=== PATIENT | female | born 1955 | race Hispanic/Latino ===

== ENCOUNTER 2020-09-04 10:05 | Inpatient (IN) | payer OTHER, MEDICARE ==
[~2020-09-04] VITALS: Ht 149.9 cm; Wt 72.1 kg
[2020-09-04 10:50] LABS: BASOPHILS % (AUTO) 0.2 % (0.0-5.0); EOSINOPHILS % (AUTO) 0.4 % (0.0-8.0); HEMATOCRIT 30.3 % (36-48); LYMPHOCYTES % (AUTO) 6.8 % (21.0-51.0); MEAN CORPUSCULAR HEMOGLOBIN 27.2 pg (27.0-33.0); MEAN CORPUSCULAR HGB CONC 30.4 g/dL (32.0-36.0); MEAN CORPUSCULAR VOLUME 89.6 fL (79-99); NEUTROPHILS % (AUTO) 88.8 % (40.0-77.0); PLATELET COUNT (AUTO) 108 K/uL (130-400); RED BLOOD CELL COUNT(AUTO) 3.38 MIL/uL (4.00-5.50); WHITE BLOOD COUNT (AUTO) 19.9 K/uL (4.8-10.8)
[2020-09-04 11:03] LABS: ALBUMIN 1.4 g/dL (3.5-5.0); BILIRUBIN,TOTAL 0.3 mg/dL (0.2-1.0); CREATININE 0.9 mg/dL (0.5-1.5); TOTAL PROTEIN, SERUM 6.4 g/dL (6.0-8.3)
[2020-09-04 11:05] LABS: POTASSIUM 2.5 mmol/L (3.5-5.1)
[2020-09-04] MEDS ORDERED: POTASSIUM BICARB/CIT AC 25 MEQ TABLET.EFF ONE (13:42)
[2020-09-04 15:03] LABS: APPEARANCE,URINE Cloudy (CLEAR); BILIRUBIN,URINE Negative (NEGATIVE); COLOR,URINE Yellow (YELLOW); GLUCOSE, URINE (UA) Negative (NEGATIVE); KETONES,URINE Negative (NEGATIVE); LEUKOCYTE ESTERASE ,URINE Trace (NEGATIVE); NITRATE,URINE Negative (NEGATIVE); OCCULT BLOOD,URINE Trace (NEGATIVE); PH,URINE 5.5 (5.0-8.0); PROTEIN,URINE POS 1+ mg/dL (NEGATIVE); UROBILINOGEN,URINE 0.2 mg/dL (0.2-1.0)
[2020-09-04 15:11] LABS: AMPHET/METH SCREEN,URINE NEGATIVE (NEGATIVE); BARBITURATE SCREEN, URINE NEGATIVE (NEGATIVE); BENZODIAZEPINES SCREEN,URINE NEGATIVE (NEGATIVE); CANNABINOID SCREEN,URINE NEGATIVE (NEGATIVE); COCAINE SCREEN,URINE NEGATIVE (NEGATIVE); OPIATE SCREEN,URINE NEGATIVE (NEGATIVE); PHENCYCLIDINE SCREEN,URINE NEGATIVE (NEGATIVE)
[2020-09-04 15:17] LABS: BACTERIA,URINE Few /HPF (None Seen); COARSE GRANULAR CASTS,URINE 0-2 /LPF (None Seen); MUCUS,URINE Rare LPF (None Seen); SQUAMOUS EPITHELIAL CELL,UR Rare /HPF (0-2); YEAST,URINE BUDDING Moderate /HPF (None Seen)
[2020-09-04] MEDS ORDERED: LABETALOL 20MG SYG IV PRN (17:00)
[2020-09-04] MEDS ORDERED: ACETAMINOPHEN 650 MG SUPPOSITORY RC PRN (17:00)
[2020-09-04] MEDS ORDERED: ONDANSETRON 4MG INJ IVP PRN (17:00)
[2020-09-04] MEDS ORDERED: VANCOMYCIN PROTOCOL PER PHARMACY IV SCH (17:00)
[2020-09-04] MEDS ORDERED: DEXTROSE 50%-WATER 50 ML DISP.SYRIN IV PRN (17:00)
[2020-09-04] MEDS ORDERED: POTASSIUM CHLORIDE 20MEQ/100ML 100 ML IV PRN ×2 (17:00)
[2020-09-04] MEDS ORDERED: LACTATED RINGERS 1000ML 1,000 ML IV SCH (17:00)
[2020-09-04] MEDS ORDERED: LACTULOSE 20 GM/30 ML UDCUP PO PRN (17:00)
[2020-09-04] MEDS ORDERED: GLUCAGON 1MG KIT 1 MG ML IM PRN (17:00)
[2020-09-04] MEDS ORDERED: LIDOCAINE HCL-MPF 1% 2ML VIAL IV PRN ×2 (17:00)
[2020-09-04] MEDS ORDERED: CLONIDINE HCL 0.1 MG TABLET PO PRN (17:00)
[2020-09-04] MEDS ORDERED: VANCOMYCIN KIT 1 GM/250 ML IV.KIT IV SCH (17:00)
[2020-09-04] MEDS ORDERED: TRAMADOL HCL 50 MG TABLET PO PRN (17:00)
[2020-09-04 17:45] LABS: CREATINE KINASE, TOTAL 307 U/L (21-232); MYOGLOBIN 384 ng/mL (10-92); TROPONIN I < 0.04 ng/mL (0.00-0.06)
[2020-09-04] MEDS ORDERED: ENOXAPARIN SODIUM 80 MG/0.8 ML SQ ONE (17:53)
[2020-09-04] MEDS ORDERED: CLINDAMYCIN IVPB 600MG/50ML 50 ML IV ONE (17:54)
[2020-09-04] MEDS: LEVOFLOXACIN 500 MG/D5W 100 ML IV SCH (18:00)
[2020-09-04] MEDS ORDERED: VANCOMYCIN 1G/250ML KIT 250 ML IV SCH (18:15)
[2020-09-04 18:26] LABS: CRP QUANTITATIVE 221.7 mg/L (0.00-9.0)
[2020-09-04] MEDS ORDERED: VANCOMYCIN 1G 1.5 GM in 0.9% NACL 250ML 250 ML IV ONE (19:30)
[2020-09-04] MEDS: ENOXAPARIN SODIUM 80 MG/0.8 ML SQ SCH (21:00)
[2020-09-04] MEDS: INSULIN HUMULIN R 100 UNIT/ML 3ML SQ SCH (21:00)
[2020-09-04] MEDS ORDERED: LEVOFLOXACIN 500 MG/D5W 100 ML 100 ML ONE (21:40)
[2020-09-04] MEDS ORDERED: LACTATED RINGERS 1000ML 1,000 ML IV ONE (21:43)
[2020-09-04 23:24] LABS: CREATINE KINASE, TOTAL 262 U/L (21-232); MYOGLOBIN 366 ng/mL (10-92); TROPONIN I < 0.04 ng/mL (0.00-0.06)
[2020-09-05] MEDS: INSULIN HUMULIN R 100 UNIT/ML 3ML SQ SCH ×3 (01:22→21:00)
[2020-09-05 07:08] LABS: BASOPHILS % (AUTO) 0.1 % (0.0-5.0); EOSINOPHILS % (AUTO) 0.2 % (0.0-8.0); HEMATOCRIT 26.7 % (36-48); LYMPHOCYTES % (AUTO) 5.5 % (21.0-51.0); MEAN CORPUSCULAR HEMOGLOBIN 27.9 pg (27.0-33.0); MEAN CORPUSCULAR HGB CONC 31.1 g/dL (32.0-36.0); MEAN CORPUSCULAR VOLUME 89.6 fL (79-99); MONOCYTES % (AUTO) 3.1 % (3.0-13.0); NEUTROPHILS % (AUTO) 90.4 % (40.0-77.0); PLATELET COUNT (AUTO) 207 K/uL (130-400); RED BLOOD CELL COUNT(AUTO) 2.98 MIL/uL (4.00-5.50); RED CELL DISTRIBUTION WIDTH 14.8 % (11.0-15.5); WHITE BLOOD COUNT (AUTO) 17.2 K/uL (4.8-10.8)
[2020-09-05 07:42] LABS: CARBON DIOXIDE 27 mmol/L (21-32); CREATINE KINASE, TOTAL 213 U/L (21-232); CREATININE 0.7 mg/dL (0.5-1.5); GLOMERULAR FILTR. RATE CALC 89 mL/min (>60); GLUCOSE,RANDOM 110 mg/dL (70-105); MYOGLOBIN 293 ng/mL (10-92); PHOSPHORUS 2.7 mg/dL (2.5-4.9); TROPONIN I < 0.04 ng/mL (0.00-0.06); UREA NITROGEN, BLOOD 13 mg/dL (7-18)
[2020-09-05 08:04] LABS: CHLORIDE 124 mmol/L (101-111); POTASSIUM 2.9 mmol/L (3.5-5.1); SODIUM SERUM 160 mmol/L (136-145)
[2020-09-05] MEDS ORDERED: ENOXAPARIN SODIUM 80 MG/0.8 ML SQ ONE ×2 (08:46→22:02)
[2020-09-05] MEDS ORDERED: LACTATED RINGERS 1000ML 1,000 ML IV ONE (08:47)
[2020-09-05] MEDS ORDERED: ASPIRIN 81MG CHEW TAB ONE (08:47)
[2020-09-05] MEDS ORDERED: PANTOPRAZOLE 40 MG TAB DR ONE (08:47)
[2020-09-05] MEDS: ENOXAPARIN SODIUM 80 MG/0.8 ML SQ SCH ×2 (09:00→21:00)
[2020-09-05] MEDS: ASPIRIN 81MG CHEW TAB PO SCH (09:00)
[2020-09-05] MEDS: PANTOPRAZOLE 40 MG TAB DR PO SCH (09:00)
[2020-09-05] MEDS ORDERED: DEXTROSE 5%-WATER 1,000 ML IV ONE ×2 (09:33→19:58)
[2020-09-05] MEDS: DEXTROSE 5%-WATER 1,000 ML IV SCH ×2 (10:36→18:36)
[2020-09-05] MEDS ORDERED: KCL 20 MEQ ERTAB PO ONE ×5 (10:46→23:28)
[2020-09-05] MEDS ORDERED: POTASSIUM CHLORIDE 20MEQ/100ML 100 ML IV ONE (10:47)
[2020-09-05] MEDS ORDERED: LEVOFLOXACIN 500 MG/D5W 100 ML 100 ML ONE (17:33)
[2020-09-05] MEDS ORDERED: INSULIN HUMULIN R 100 UNIT/ML 3ML ONE ×2 (17:44→22:03)
[2020-09-05] MEDS: LEVOFLOXACIN 500 MG/D5W 100 ML IV SCH (18:00)
[2020-09-05 21:54] LABS: CHLORIDE,URINE RANDOM 69 mmol/L (110-250); POTASSIUM,URINE RANDOM 55 mmol/L (25-125); SODIUM,URINE RANDOM 16 mmol/l (40-220)
[2020-09-05 22:20] LABS: CREATININE 0.8 mg/dL (0.5-1.5); POTASSIUM 3.2 mmol/L (3.5-5.1)
[2020-09-05] MEDS ORDERED: IOHEXOL-350 75 ML VIAL IV ONE (23:34)
[2020-09-06] VITALS (7 sets, daily range): BP systolic 93–113; BP diastolic 41–75
[2020-09-06 00:29] LABS: CREATINE KINASE, TOTAL 114 U/L (21-232); MYOGLOBIN 244 ng/mL (10-92); TROPONIN I < 0.04 ng/mL (0.00-0.06)
[2020-09-06] MEDS: VANCOMYCIN 750MG + NS 250 ML IV SCH ×4 (01:22→18:00)
[2020-09-06] MEDS: MORPHINE 2 MG SYG IVP PRN ×2 (01:29→09:25)
[2020-09-06] MEDS: KCL 20 MEQ ERTAB PO PRN ×2 (01:29→20:50)
[2020-09-06] MEDS: DEXTROSE 5%-WATER 1,000 ML IV SCH ×3 (02:36→20:56)
[2020-09-06 05:41] LABS: RETICULOCYTE % (AUTO) 0.46 % (0.42-2.23)
[2020-09-06] MEDS: INSULIN HUMULIN R 100 UNIT/ML 3ML SQ SCH ×4 (05:54→20:56)
[2020-09-06] MEDS: PANTOPRAZOLE 40 MG TAB DR PO SCH (09:17)
[2020-09-06] MEDS: ASPIRIN 81MG CHEW TAB PO SCH (09:17)
[2020-09-06] MEDS: ENOXAPARIN SODIUM 80 MG/0.8 ML SQ SCH ×2 (09:17→20:50)
[2020-09-06] MEDS: IRON SUCROSE COMPLEX 100 MG in 0.9%NACL 50ML 50 ML IV SCH (12:26)
[2020-09-06] MEDS: BALSAM PERU/CASTOR OIL 60 GM TUBE TP SCH (12:27)
[2020-09-06] MEDS ORDERED: COMPOUND IV REFRIGERATED 1 EACH IVSOLN MISC PRN (12:30)
[2020-09-06] MEDS ORDERED: COMPOUND IV MISC 1 EACH IVSOLN MISC PRN (13:30)
[2020-09-06] MEDS: LEVOFLOXACIN 500 MG/D5W 100 ML IV SCH (18:26)
[2020-09-06] MEDS: VANCOMYCIN 500MG+NS 100ML 100 ML IV SCH (20:49)
[2020-09-07] MEDS: DEXTROSE 5%-WATER 1,000 ML IV SCH ×2 (02:36→10:36)
[2020-09-07 04:10] VITALS: BP 105/46
[2020-09-07] MEDS: VANCOMYCIN 500MG+NS 100ML 100 ML IV SCH ×2 (04:53→19:32)
[2020-09-07] MEDS: INSULIN HUMULIN R 100 UNIT/ML 3ML SQ SCH ×4 (05:54→20:02)
[2020-09-07 06:13] LABS: CREATININE 0.8 mg/dL (0.5-1.5); POTASSIUM 3.6 mmol/L (3.5-5.1)
[2020-09-07 06:22] LABS: HEMATOCRIT 22.5 % (36-48); MEAN CORPUSCULAR HEMOGLOBIN 27.4 pg (27.0-33.0); MEAN CORPUSCULAR HGB CONC 31.6 g/dL (32.0-36.0); MEAN CORPUSCULAR VOLUME 86.9 fL (79-99); PLATELET COUNT (AUTO) 228 K/uL (130-400); RED BLOOD CELL COUNT(AUTO) 2.59 MIL/uL (4.00-5.50); RED CELL DISTRIBUTION WIDTH 14.4 % (11.0-15.5); WHITE BLOOD COUNT (AUTO) 8.8 K/uL (4.8-10.8)
[2020-09-07 07:33] LABS: LYMPHOCYTES % (MANUAL) 1 % (22-44); MONOCYTES % (MANUAL) 1 % (2-9); SEGMENTED NEUTROPHILS % 98 % (40-70)
[2020-09-07 07:34] LABS: MAN.DIFF COMMENT-IMPRESSION MANUAL DIFFERENTIAL
[2020-09-07 07:35] LABS: PLATELET MORPHOLOGY COMMENT ADEQUATE
[2020-09-07 08:00] VITALS: BP 121/55
[2020-09-07] MEDS: PANTOPRAZOLE 40 MG TAB DR PO SCH (10:02)
[2020-09-07] MEDS: ASPIRIN 81MG CHEW TAB PO SCH (10:02)
[2020-09-07] MEDS: ENOXAPARIN SODIUM 80 MG/0.8 ML SQ SCH ×2 (10:03→19:54)
[2020-09-07] MEDS: IRON SUCROSE COMPLEX 100 MG in 0.9%NACL 50ML 50 ML IV SCH (10:03)
[2020-09-07] MEDS: BALSAM PERU/CASTOR OIL 60 GM TUBE TP SCH (10:04)
[2020-09-07 11:40] VITALS: BP 117/62
[2020-09-07 16:00] VITALS: BP 119/54
[2020-09-07] MEDS: GUAIFENESIN-DM 200/20 MG 10 ML PO PRN ×2 (16:16→19:53)
[2020-09-07] MEDS: LEVOFLOXACIN 500 MG/D5W 100 ML IV SCH (18:14)
[2020-09-07 20:24] VITALS: BP 105/56
[2020-09-07 23:35] VITALS: BP 101/51
[2020-09-08] VITALS (9 sets, daily range): BP systolic 84–122; BP diastolic 41–63
[2020-09-08 05:34] LABS: MEAN CORPUSCULAR HEMOGLOBIN 27.7 pg (27.0-33.0); MEAN CORPUSCULAR VOLUME 86.6 fL (79-99); PLATELET COUNT (AUTO) 242 K/uL (130-400); RED BLOOD CELL COUNT(AUTO) 2.31 MIL/uL (4.00-5.50); RED CELL DISTRIBUTION WIDTH 14.1 % (11.0-15.5); WHITE BLOOD COUNT (AUTO) 8.4 K/uL (4.8-10.8)
[2020-09-08 06:16] LABS: % IRON SATURATION 17.4 % (22-44)
[2020-09-08 06:18] LABS: THYROID STIMULATING HORMONE 1.19 uIU/mL (0.36-3.74)
[2020-09-08] MEDS: INSULIN HUMULIN R 100 UNIT/ML 3ML SQ SCH ×4 (06:23→20:59)
[2020-09-08 06:25] LABS: BAND NEUTROPHILS % (MANUAL) 6 % (0-2); LYMPHOCYTES % (MANUAL) 5 % (22-44); MONOCYTES % (MANUAL) 2 % (2-9); SEGMENTED NEUTROPHILS % 87 % (40-70)
[2020-09-08 06:26] LABS: MAN.DIFF COMMENT-IMPRESSION MANUAL DIFFERENTIAL; PLATELET MORPHOLOGY COMMENT ADEQUATE
[2020-09-08] MEDS: POLYETHYLENE GLYCOL 3350 17 GM POWD.PACK PO SCH (08:13)
[2020-09-08] MEDS: ASPIRIN 81MG CHEW TAB PO SCH (08:14)
[2020-09-08] MEDS: ENOXAPARIN SODIUM 80 MG/0.8 ML SQ SCH (08:14)
[2020-09-08] MEDS: PANTOPRAZOLE 40 MG TAB DR PO SCH (08:14)
[2020-09-08] MEDS ORDERED: SOLU-MEDROL 125MG VIAL IVP SCH ×3 (08:15→11:30)
[2020-09-08] MEDS ORDERED: FUROSEMIDE 20 MG TABLET PO SCH (09:00)
[2020-09-08] MEDS ORDERED: PHARMACY COMMUNICATION MISC SCH (10:00)
[2020-09-08] MEDS: 0.9% NACL 500ML IV.SOLN 500 ML IV SCH ×2 (10:31→11:29)
[2020-09-08] MEDS ORDERED: VANCOMYCIN 500MG+NS 100ML 100 ML IV SCH (11:30)
[2020-09-08] MEDS: IRON SUCROSE COMPLEX 100 MG in 0.9%NACL 50ML 50 ML IV SCH (11:35)
[2020-09-08] MEDS ORDERED: MIDODRINE HCL 5 MG TABLET PO SCH ×2 (12:40→14:00)
[2020-09-08] MEDS: BALSAM PERU/CASTOR OIL 60 GM TUBE TP SCH (13:37)
[2020-09-08] MEDS: 0.9%NACL 1000ML 1,000 ML IV SCH ×2 (13:38→23:20)
[2020-09-08 15:10] LABS: HEMATOCRIT 26.1 % (36-48)
[2020-09-08 15:22] LABS: INR 1.1 (0.85-1.15); PROTHROMBIN TIME 11.9 SEC (9.6-11.6)
[2020-09-08 15:23] LABS: PARTIAL THROMBOPLASTIN TIME 42.1 SEC (26.3-35.5)
[2020-09-08] MEDS ORDERED: REMDESIVIR (EUA) 520 200 MG in 0.9% NACL 250ML 250 ML IV SCH (16:00)
[2020-09-08 16:41] LABS: ABG BASE EXCESS 0.6 mmol/L (-2.0-3.0); ABG HCO3 23.9 mmol/L (21.0-28.0); ABG OXYGEN SATURATION 91.1 % (95.0-99.0); ABG PCO2 33 mmHg (32-45)
[2020-09-08] MEDS: LEVOFLOXACIN 500 MG/D5W 100 ML IV SCH (16:57)
[2020-09-08] MEDS: VANCOMYCIN 500MG+NS 100ML 100 ML IV SCH (21:01)
[2020-09-08] MEDS: DRONABINOL 2.5 MG CAP PO SCH (21:02)
[2020-09-08] MEDS: PANTOPRAZOLE 40 MG/VIAL IVP SCH (21:02)
[2020-09-08] MEDS: SOLU-MEDROL 125MG VIAL IVP SCH (21:08)
[2020-09-08] MEDS: MIDODRINE HCL 5 MG TABLET PO SCH (21:08)
[2020-09-08] MEDS: GUAIFENESIN-DM 200/20 MG 10 ML PO PRN (21:09)
[2020-09-08 21:49] LABS: HEMATOCRIT 27.2 % (36-48)
[2020-09-09 04:21] VITALS: BP 103/47
[2020-09-09 04:27] LABS: HEMATOCRIT 26.1 % (36-48); MEAN CORPUSCULAR HEMOGLOBIN 27.8 pg (27.0-33.0); MEAN CORPUSCULAR VOLUME 84.5 fL (79-99); PLATELET COUNT (AUTO) 264 K/uL (130-400); RED BLOOD CELL COUNT(AUTO) 3.09 MIL/uL (4.00-5.50); WHITE BLOOD COUNT (AUTO) 7.5 K/uL (4.8-10.8)
[2020-09-09 04:50] LABS: CREATININE 0.8 mg/dL (0.5-1.5); PHOSPHORUS 3.6 mg/dL (2.5-4.9); POTASSIUM 3.3 mmol/L (3.5-5.1)
[2020-09-09 05:26] LABS: BAND NEUTROPHILS % (MANUAL) 8 % (0-2); LYMPHOCYTES % (MANUAL) 2 % (22-44); MAN.DIFF COMMENT-IMPRESSION MANUAL DIFFERENTIAL; SEGMENTED NEUTROPHILS % 90 % (40-70)
[2020-09-09] MEDS: SOLU-MEDROL 125MG VIAL IVP SCH ×3 (06:10→21:26)
[2020-09-09] MEDS: INSULIN HUMULIN R 100 UNIT/ML 3ML SQ SCH ×4 (06:18→21:38)
[2020-09-09] MEDS: 0.9%NACL 1000ML 1,000 ML IV SCH ×2 (06:27→21:41)
[2020-09-09 08:00] VITALS: BP 110/55
[2020-09-09] MEDS: DRONABINOL 2.5 MG CAP PO SCH ×3 (08:05→21:21)
[2020-09-09] MEDS: IRON SUCROSE COMPLEX 100 MG in 0.9%NACL 50ML 50 ML IV SCH (08:05)
[2020-09-09] MEDS: ASPIRIN 81MG CHEW TAB PO SCH ×2 (08:05→09:00)
[2020-09-09] MEDS: POLYETHYLENE GLYCOL 3350 17 GM POWD.PACK PO SCH ×3 (08:05→09:28)
[2020-09-09] MEDS ORDERED: LACTULOSE 20 GM/30 ML UDCUP PO PRN (08:15)
[2020-09-09] MEDS: VANCOMYCIN 500MG+NS 100ML 100 ML IV SCH ×2 (08:20→21:20)
[2020-09-09] MEDS: BALSAM PERU/CASTOR OIL 60 GM TUBE TP SCH (08:21)
[2020-09-09] MEDS: MIDODRINE HCL 5 MG TABLET PO SCH ×4 (08:23→21:21)
[2020-09-09] MEDS: PANTOPRAZOLE 40 MG/VIAL IVP SCH ×2 (09:28→21:21)
[2020-09-09 12:00] VITALS: BP 113/58
[2020-09-09 12:53] LABS: % IRON SATURATION 33.3 % (22-44)
[2020-09-09 13:24] LABS: ALANINE AMINOTRANSFERASE 32 U/L (12-78); ALBUMIN 0.8 g/dL (3.5-5.0); ASPARTATE AMINOTRANSFERASE 44 U/L (10-37); BILIRUBIN,DIRECT < 0.1 mg/dL (0.0-0.3); BILIRUBIN,TOTAL 0.2 mg/dL (0.2-1.0); TOTAL PROTEIN, SERUM 5.1 g/dL (6.0-8.3)
[2020-09-09] MEDS: GUAIFENESIN-DM 200/20 MG 10 ML PO PRN ×2 (14:58→21:41)
[2020-09-09] MEDS: REMDESIVIR (EUA) 520 100 MG in 0.9% NACL 250ML 250 ML IV SCH (14:58)
[2020-09-09 16:00] VITALS: BP 112/61
[2020-09-09 16:03] LABS: HEMATOCRIT 29.1 % (36-48)
[2020-09-09] MEDS: LEVOFLOXACIN 500 MG/D5W 100 ML IV SCH (17:16)
[2020-09-09] MEDS ORDERED: FLUCONAZOLE 100 MG TAB PO ONE (17:25)
[2020-09-09 20:02] VITALS: BP 101/60
[2020-09-09] MEDS: INSULIN GLARGINE 100 UNITS/ML 10 ML VIAL SQ SCH (21:38)
[2020-09-09 22:11] LABS: HEMATOCRIT 28.1 % (36-48)
[2020-09-10] VITALS (10 sets, daily range): BP systolic 106–133; BP diastolic 60–76
[2020-09-10 05:11] LABS: CREATININE 0.8 mg/dL (0.5-1.5); POTASSIUM 3.3 mmol/L (3.5-5.1)
[2020-09-10] MEDS: SOLU-MEDROL 125MG VIAL IVP SCH ×3 (05:44→23:40)
[2020-09-10] MEDS: INSULIN HUMULIN R 100 UNIT/ML 3ML SQ SCH ×4 (06:52→20:46)
[2020-09-10] MEDS: BALSAM PERU/CASTOR OIL 60 GM TUBE TP SCH (08:00)
[2020-09-10] MEDS: POLYETHYLENE GLYCOL 3350 17 GM POWD.PACK PO SCH ×2 (08:18→08:19)
[2020-09-10] MEDS: DRONABINOL 2.5 MG CAP PO SCH ×2 (08:18→20:42)
[2020-09-10] MEDS: PANTOPRAZOLE 40 MG/VIAL IVP SCH ×2 (08:18→20:45)
[2020-09-10] MEDS: FLUCONAZOLE 100 MG TAB PO SCH (08:19)
[2020-09-10] MEDS: ASPIRIN 81MG CHEW TAB PO SCH (08:19)
[2020-09-10 08:24] LABS: HEMATOCRIT 29.3 % (36-48); MEAN CORPUSCULAR HEMOGLOBIN 27.7 pg (27.0-33.0); MEAN CORPUSCULAR HGB CONC 32.8 g/dL (32.0-36.0); MEAN CORPUSCULAR VOLUME 84.7 fL (79-99); RED BLOOD CELL COUNT(AUTO) 3.46 MIL/uL (4.00-5.50); WHITE BLOOD COUNT (AUTO) 7.7 K/uL (4.8-10.8)
[2020-09-10] MEDS: MIDODRINE HCL 5 MG TABLET PO SCH ×3 (09:12→20:42)
[2020-09-10 09:39] LABS: INR 1.1 (0.85-1.15); PROTHROMBIN TIME 11.9 SEC (9.6-11.6)
[2020-09-10 09:40] LABS: PARTIAL THROMBOPLASTIN TIME 34.9 SEC (26.3-35.5)
[2020-09-10] MEDS: IRON SUCROSE COMPLEX 100 MG in 0.9%NACL 50ML 50 ML IV SCH (09:42)
[2020-09-10] MEDS: VANCOMYCIN 500MG+NS 100ML 100 ML IV SCH ×2 (09:42→20:45)
[2020-09-10] MEDS: GUAIFENESIN-DM 200/20 MG 10 ML PO PRN (09:57)
[2020-09-10] MEDS: 0.9%NACL 1000ML 1,000 ML IV SCH (13:18)
[2020-09-10] MEDS ORDERED: LIDOCAINE HCL 1% MDV 50ML VIAL ONE (14:56)
[2020-09-10] MEDS ORDERED: IOHEXOL-350 50ML VIAL IV ONE (14:56)
[2020-09-10] MEDS: REMDESIVIR (EUA) 520 100 MG in 0.9% NACL 250ML 250 ML IV SCH (16:26)
[2020-09-10] MEDS: LEVOFLOXACIN 500 MG/D5W 100 ML IV SCH (17:59)
[2020-09-10] MEDS: INSULIN GLARGINE 100 UNITS/ML 10 ML VIAL SQ SCH (20:41)
[2020-09-10] MEDS: ACETAMINOPHEN 325 MG TAB PO PRN (20:43)
[2020-09-11] MEDS: 0.9%NACL 1000ML 1,000 ML IV SCH (04:30)
[2020-09-11 04:37] VITALS: BP 129/64
[2020-09-11 04:47] LABS: MEAN CORPUSCULAR HEMOGLOBIN 27.7 pg (27.0-33.0); MEAN CORPUSCULAR HGB CONC 32.1 g/dL (32.0-36.0); MEAN CORPUSCULAR VOLUME 86.3 fL (79-99); RED BLOOD CELL COUNT(AUTO) 3.36 MIL/uL (4.00-5.50); RED CELL DISTRIBUTION WIDTH 13.9 % (11.0-15.5); WHITE BLOOD COUNT (AUTO) 7.3 K/uL (4.8-10.8)
[2020-09-11 05:04] LABS: CREATININE 0.8 mg/dL (0.5-1.5); MAGNESIUM 1.7 mg/dL (1.80-2.40); POTASSIUM 3.6 mmol/L (3.5-5.1)
[2020-09-11] MEDS: INSULIN HUMULIN R 100 UNIT/ML 3ML SQ SCH ×4 (05:54→21:27)
[2020-09-11] MEDS: SOLU-MEDROL 125MG VIAL IVP SCH ×3 (06:01→21:32)
[2020-09-11] MEDS ORDERED: LISI2.5T13 PO (07:38)
[2020-09-11] MEDS ORDERED: METF-444 PO (07:38)
[2020-09-11] MEDS ORDERED: LOSA50TA64 PO (07:38)
[2020-09-11] MEDS ORDERED: GLIP10TA19 PO (07:38)
[2020-09-11] MEDS ORDERED: ROSU10TA28 PO (07:38)
[2020-09-11 08:00] VITALS: BP 129/55
[2020-09-11] MEDS: POLYETHYLENE GLYCOL 3350 17 GM POWD.PACK PO SCH ×2 (09:00→10:09)
[2020-09-11] MEDS: MIDODRINE HCL 5 MG TABLET PO SCH ×3 (10:09→21:24)
[2020-09-11] MEDS: ASPIRIN 81MG CHEW TAB PO SCH (10:09)
[2020-09-11] MEDS: DRONABINOL 2.5 MG CAP PO SCH ×2 (10:09→21:35)
[2020-09-11] MEDS: PANTOPRAZOLE 40 MG/VIAL IVP SCH (10:09)
[2020-09-11] MEDS: FLUCONAZOLE 100 MG TAB PO SCH (10:09)
[2020-09-11] MEDS: FUROSEMIDE 20MG VIAL IV SCH ×2 (10:10→21:29)
[2020-09-11] MEDS: VANCOMYCIN 500MG+NS 100ML 100 ML IV SCH ×2 (10:11→21:29)
[2020-09-11] MEDS: BALSAM PERU/CASTOR OIL 60 GM TUBE TP SCH (10:11)
[2020-09-11] MEDS: ESOMEPRAZOLE SODIUM 40 MG VIAL IVP SCH ×2 (11:15→21:30)
[2020-09-11 11:41] VITALS: BP 127/65
[2020-09-11] MEDS: IRON SUCROSE COMPLEX 100 MG in 0.9%NACL 50ML 50 ML IV SCH (13:26)
[2020-09-11] MEDS: POTASSIUM CHLORIDE 10% ELIXIR 20 MEQ/15 ML UDCUP PO PRN (13:27)
[2020-09-11] MEDS: REMDESIVIR (EUA) 520 100 MG in 0.9% NACL 250ML 250 ML IV SCH (14:56)
[2020-09-11 16:00] VITALS: BP 157/78
[2020-09-11] MEDS: LEVOFLOXACIN 500 MG/D5W 100 ML IV SCH (18:33)
[2020-09-11 19:58] VITALS: BP 123/50
[2020-09-11] MEDS: ACETAMINOPHEN 325 MG TAB PO PRN (21:25)
[2020-09-11] MEDS: INSULIN GLARGINE 100 UNITS/ML 10 ML VIAL SQ SCH (21:26)
[2020-09-11 23:40] VITALS: BP 109/64
[2020-09-12 03:47] VITALS: BP 128/60
[2020-09-12] MEDS: INSULIN HUMULIN R 100 UNIT/ML 3ML SQ SCH ×4 (05:48→20:55)
[2020-09-12] MEDS: SOLU-MEDROL 125MG VIAL IVP SCH ×3 (06:01→20:40)
[2020-09-12] MEDS: POLYETHYLENE GLYCOL 3350 17 GM POWD.PACK PO SCH ×2 (07:43→09:12)
[2020-09-12] MEDS: VANCOMYCIN 500MG+NS 100ML 100 ML IV SCH (09:00)
[2020-09-12 09:01] LABS: ALBUMIN 1.1 g/dL (3.5-5.0); BILIRUBIN,TOTAL 0.2 mg/dL (0.2-1.0); CREATININE 0.8 mg/dL (0.5-1.5); MAGNESIUM 1.7 mg/dL (1.80-2.40); POTASSIUM 3.1 mmol/L (3.5-5.1); TOTAL PROTEIN, SERUM 5.1 g/dL (6.0-8.3)
[2020-09-12] MEDS: MIDODRINE HCL 5 MG TABLET PO SCH ×3 (09:12→20:41)
[2020-09-12] MEDS: FUROSEMIDE 20MG VIAL IV SCH ×2 (09:12→20:37)
[2020-09-12] MEDS: BALSAM PERU/CASTOR OIL 60 GM TUBE TP SCH (09:12)
[2020-09-12] MEDS: ASPIRIN 81MG CHEW TAB PO SCH (09:12)
[2020-09-12] MEDS: DRONABINOL 2.5 MG CAP PO SCH ×2 (09:12→20:41)
[2020-09-12] MEDS: FLUCONAZOLE 100 MG TAB PO SCH (09:12)
[2020-09-12] MEDS: IRON SUCROSE COMPLEX 100 MG in 0.9%NACL 50ML 50 ML IV SCH (09:13)
[2020-09-12] MEDS: ESOMEPRAZOLE SODIUM 40 MG VIAL IVP SCH (09:13)
[2020-09-12 12:00] VITALS: BP 132/68
[2020-09-12] MEDS: CEFAZOLIN SODIUM 1 GM VIAL IVP SCH ×2 (13:30→20:38)
[2020-09-12] MEDS: POTASSIUM CHLORIDE 10% ELIXIR 20 MEQ/15 ML UDCUP PO PRN (15:18)
[2020-09-12] MEDS: GUAIFENESIN-DM 200/20 MG 10 ML PO PRN (15:18)
[2020-09-12] MEDS: ACETAMINOPHEN 325 MG TAB PO PRN (15:19)
[2020-09-12 16:00] VITALS: BP 121/76
[2020-09-12] MEDS: LEVOFLOXACIN 500 MG/D5W 100 ML IV SCH (17:52)
[2020-09-12] MEDS: REMDESIVIR (EUA) 520 100 MG in 0.9% NACL 250ML 250 ML IV SCH (17:52)
[2020-09-12] MEDS ORDERED: PERMETHRIN LOTION 1% 59ML BOTTLE TP SCH ×2 (18:00→21:00)
[2020-09-12] MEDS: MAGNESIUM 2GM PREMIX 50ML 50 ML IV PRN (18:30)
[2020-09-12 20:11] VITALS: BP 132/69
[2020-09-12] MEDS: INSULIN GLARGINE 100 UNITS/ML 10 ML VIAL SQ SCH (20:55)
[2020-09-12] MEDS: PANTOPRAZOLE 40 MG TAB DR PO SCH (20:57)
[2020-09-12 23:44] VITALS: BP 121/56
[2020-09-13 04:19] VITALS: BP 123/63
[2020-09-13] MEDS: SOLU-MEDROL 125MG VIAL IVP SCH ×3 (05:41→21:06)
[2020-09-13] MEDS: CEFAZOLIN SODIUM 1 GM VIAL IVP SCH ×3 (05:41→21:06)
[2020-09-13] MEDS: INSULIN HUMULIN R 100 UNIT/ML 3ML SQ SCH ×4 (06:02→21:04)
[2020-09-13 08:00] VITALS: BP_SYST 123; BP_SYST 140; BP_DIAS 58; BP_DIAS 63
[2020-09-13 08:16] LABS: ALBUMIN 1.1 g/dL (3.5-5.0); BILIRUBIN,TOTAL 0.3 mg/dL (0.2-1.0); CREATININE 0.8 mg/dL (0.5-1.5); POTASSIUM 4.1 mmol/L (3.5-5.1); TOTAL PROTEIN, SERUM 4.9 g/dL (6.0-8.3)
[2020-09-13] MEDS: PANTOPRAZOLE 40 MG TAB DR PO SCH ×2 (08:57→20:27)
[2020-09-13] MEDS: POLYETHYLENE GLYCOL 3350 17 GM POWD.PACK PO SCH ×2 (08:57→08:59)
[2020-09-13] MEDS: DRONABINOL 2.5 MG CAP PO SCH ×2 (08:57→20:27)
[2020-09-13] MEDS: FLUCONAZOLE 100 MG TAB PO SCH (08:57)
[2020-09-13] MEDS: ASPIRIN 81MG CHEW TAB PO SCH (08:57)
[2020-09-13] MEDS: BALSAM PERU/CASTOR OIL 60 GM TUBE TP SCH (08:57)
[2020-09-13] MEDS: MIDODRINE HCL 5 MG TABLET PO SCH ×3 (08:57→20:26)
[2020-09-13] MEDS: POTASSIUM CHLORIDE 10% ELIXIR 20 MEQ/15 ML UDCUP PO SCH (08:58)
[2020-09-13] MEDS: IRON SUCROSE COMPLEX 100 MG in 0.9%NACL 50ML 50 ML IV SCH (09:54)
[2020-09-13 12:00] VITALS: BP 138/68
[2020-09-13 17:11] VITALS: BP 127/72
[2020-09-13] MEDS: LEVOFLOXACIN 500 MG/D5W 100 ML IV SCH (17:13)
[2020-09-13 19:58] VITALS: BP 133/72
[2020-09-13] MEDS: FUROSEMIDE 20MG VIAL IV SCH (20:27)
[2020-09-13] MEDS: INSULIN GLARGINE 100 UNITS/ML 10 ML VIAL SQ SCH (21:04)
[2020-09-13 23:30] VITALS: BP 104/54
[2020-09-14] VITALS (7 sets, daily range): BP systolic 121–167; BP diastolic 63–77
[2020-09-14 04:57] LABS: HEMATOCRIT 28.5 % (36-48); LYMPHOCYTES % (AUTO) 8.1 % (21.0-51.0); MEAN CORPUSCULAR HEMOGLOBIN 27.7 pg (27.0-33.0); MEAN CORPUSCULAR HGB CONC 33.3 g/dL (32.0-36.0); MEAN CORPUSCULAR VOLUME 83.1 fL (79-99); MONOCYTES % (AUTO) 3.8 % (3.0-13.0); NEUTROPHILS % (AUTO) 87.3 % (40.0-77.0); PLATELET COUNT (AUTO) 226 K/uL (130-400); RED BLOOD CELL COUNT(AUTO) 3.43 MIL/uL (4.00-5.50); RED CELL DISTRIBUTION WIDTH 14.4 % (11.0-15.5); WHITE BLOOD COUNT (AUTO) 11.4 K/uL (4.8-10.8)
[2020-09-14 05:09] LABS: CREATININE 0.7 mg/dL (0.5-1.5); MAGNESIUM 1.7 mg/dL (1.80-2.40); POTASSIUM 3.6 mmol/L (3.5-5.1)
[2020-09-14 05:10] LABS: ALBUMIN 1.2 g/dL (3.5-5.0); BILIRUBIN,TOTAL 0.3 mg/dL (0.2-1.0); TOTAL PROTEIN, SERUM 4.7 g/dL (6.0-8.3)
[2020-09-14 05:15] LABS: B-TYPE NATRIURETIC PEPTIDE 20 pg/mL (0-100)
[2020-09-14] MEDS: SOLU-MEDROL 125MG VIAL IVP SCH ×3 (06:12→21:19)
[2020-09-14] MEDS: CEFAZOLIN SODIUM 1 GM VIAL IVP SCH ×3 (06:12→21:48)
[2020-09-14] MEDS: INSULIN HUMULIN R 100 UNIT/ML 3ML SQ SCH ×4 (06:13→20:21)
[2020-09-14] MEDS: POLYETHYLENE GLYCOL 3350 17 GM POWD.PACK PO SCH ×2 (09:00→09:57)
[2020-09-14] MEDS: IRON SUCROSE COMPLEX 100 MG in 0.9%NACL 50ML 50 ML IV SCH (09:56)
[2020-09-14] MEDS: MAGNESIUM 2GM PREMIX 50ML 50 ML IV PRN (09:57)
[2020-09-14] MEDS: MIDODRINE HCL 5 MG TABLET PO SCH ×3 (09:58→20:15)
[2020-09-14] MEDS: POTASSIUM CHLORIDE 10% ELIXIR 20 MEQ/15 ML UDCUP PO SCH (09:58)
[2020-09-14] MEDS: DRONABINOL 2.5 MG CAP PO SCH ×2 (09:59→20:10)
[2020-09-14] MEDS: ASPIRIN 81MG CHEW TAB PO SCH (09:59)
[2020-09-14] MEDS: FLUCONAZOLE 100 MG TAB PO SCH (09:59)
[2020-09-14] MEDS: PANTOPRAZOLE 40 MG TAB DR PO SCH ×2 (09:59→20:11)
[2020-09-14] MEDS: KCL 20 MEQ ERTAB PO PRN ×2 (09:59→14:10)
[2020-09-14] MEDS: BALSAM PERU/CASTOR OIL 60 GM TUBE TP SCH (10:00)
[2020-09-14] MEDS: FUROSEMIDE 20MG VIAL IV SCH ×2 (10:00→20:10)
[2020-09-14] MEDS: LEVOFLOXACIN 500 MG/D5W 100 ML IV SCH (16:57)
[2020-09-14] MEDS: ACETAMINOPHEN 325 MG TAB PO PRN (21:19)
[2020-09-14] MEDS ORDERED: INSULIN GLARGINE 100 UNITS/ML 10 ML VIAL SQ SCH (22:00)
[2020-09-15 03:00] VITALS: BP 115/68
[2020-09-15 03:46] LABS: ABG BASE EXCESS 6.2 mmol/L (-2.0-3.0); ABG HCO3 28.1 mmol/L (21.0-28.0); ABG OXYGEN SATURATION 95.1 % (95.0-99.0); ABG PCO2 32 mmHg (32-45)
[2020-09-15 04:46] LABS: MEAN CORPUSCULAR HEMOGLOBIN 28.4 pg (27.0-33.0); MEAN CORPUSCULAR HGB CONC 33.6 g/dL (32.0-36.0); MEAN CORPUSCULAR VOLUME 84.6 fL (79-99); RED BLOOD CELL COUNT(AUTO) 3.31 MIL/uL (4.00-5.50); RED CELL DISTRIBUTION WIDTH 14.6 % (11.0-15.5); WHITE BLOOD COUNT (AUTO) 8.7 K/uL (4.8-10.8)
[2020-09-15 05:06] LABS: ALBUMIN 1.3 g/dL (3.5-5.0); BILIRUBIN,TOTAL 0.3 mg/dL (0.2-1.0); CREATININE 0.7 mg/dL (0.5-1.5); CRP QUANTITATIVE 15.5 mg/L (0.00-9.0); POTASSIUM 4.3 mmol/L (3.5-5.1); TOTAL PROTEIN, SERUM 4.4 g/dL (6.0-8.3)
[2020-09-15] MEDS: SOLU-MEDROL 125MG VIAL IVP SCH ×3 (06:23→21:26)
[2020-09-15] MEDS: CEFAZOLIN SODIUM 1 GM VIAL IVP SCH ×3 (06:23→21:26)
[2020-09-15 07:30] VITALS: BP 130/70
[2020-09-15] MEDS: INSULIN HUMULIN R 100 UNIT/ML 3ML SQ SCH ×4 (07:30→21:32)
[2020-09-15] MEDS: POLYETHYLENE GLYCOL 3350 17 GM POWD.PACK PO SCH ×2 (08:00→09:00)
[2020-09-15] MEDS: MIDODRINE HCL 5 MG TABLET PO SCH ×3 (09:00→21:25)
[2020-09-15] MEDS: ASPIRIN 81MG CHEW TAB PO SCH (09:23)
[2020-09-15] MEDS: DRONABINOL 2.5 MG CAP PO SCH (09:23)
[2020-09-15] MEDS: PANTOPRAZOLE 40 MG TAB DR PO SCH ×2 (09:23→21:25)
[2020-09-15] MEDS: FLUCONAZOLE 100 MG TAB PO SCH (09:24)
[2020-09-15] MEDS: POTASSIUM CHLORIDE 10% ELIXIR 20 MEQ/15 ML UDCUP PO SCH (09:25)
[2020-09-15] MEDS: BALSAM PERU/CASTOR OIL 60 GM TUBE TP SCH (10:31)
[2020-09-15 12:00] VITALS: BP 117/61
[2020-09-15 16:00] VITALS: BP 115/57
[2020-09-15 16:08] LABS: INR 1.13 (0.85-1.15); PROTHROMBIN TIME 12.2 SEC (9.6-11.6)
[2020-09-15] MEDS: LEVOFLOXACIN 500 MG/D5W 100 ML IV SCH (17:03)
[2020-09-15 20:00] VITALS: BP 112/59
[2020-09-15] MEDS ORDERED: INSULIN GLARGINE 100 UNITS/ML 10 ML VIAL SQ SCH (22:00)
[2020-09-16] VITALS: BP 135/62
[2020-09-16 04:11] VITALS: BP 117/61
[2020-09-16 04:21] LABS: HEMATOCRIT 27.7 % (36-48); MEAN CORPUSCULAR HEMOGLOBIN 28.6 pg (27.0-33.0); MEAN CORPUSCULAR HGB CONC 33.6 g/dL (32.0-36.0); MEAN CORPUSCULAR VOLUME 85.2 fL (79-99); RED BLOOD CELL COUNT(AUTO) 3.25 MIL/uL (4.00-5.50); RED CELL DISTRIBUTION WIDTH 14.7 % (11.0-15.5); WHITE BLOOD COUNT (AUTO) 9.9 K/uL (4.8-10.8)
[2020-09-16 04:48] LABS: ALBUMIN 1.3 g/dL (3.5-5.0); BILIRUBIN,TOTAL 0.3 mg/dL (0.2-1.0); CREATININE 0.6 mg/dL (0.5-1.5); POTASSIUM 3.7 mmol/L (3.5-5.1); TOTAL PROTEIN, SERUM 4.6 g/dL (6.0-8.3)
[2020-09-16] MEDS: CEFAZOLIN SODIUM 1 GM VIAL IVP SCH ×3 (05:48→20:58)
[2020-09-16] MEDS: SOLU-MEDROL 125MG VIAL IVP SCH ×2 (05:48→14:27)
[2020-09-16] MEDS: INSULIN HUMULIN R 100 UNIT/ML 3ML SQ SCH ×4 (06:43→21:00)
[2020-09-16] MEDS ORDERED: HONEY 1 APPL/ML TUBE TP SCH (07:45)
[2020-09-16 08:07] VITALS: BP 131/69
[2020-09-16] MEDS: FLUCONAZOLE 100 MG TAB PO SCH (08:18)
[2020-09-16] MEDS: PANTOPRAZOLE 40 MG TAB DR PO SCH ×2 (08:18→20:58)
[2020-09-16] MEDS: ASPIRIN 81MG CHEW TAB PO SCH (08:18)
[2020-09-16] MEDS: POLYETHYLENE GLYCOL 3350 17 GM POWD.PACK PO SCH ×2 (08:19→08:20)
[2020-09-16] MEDS: POTASSIUM CHLORIDE 10% ELIXIR 20 MEQ/15 ML UDCUP PO SCH (08:19)
[2020-09-16] MEDS: BALSAM PERU/CASTOR OIL 60 GM TUBE TP SCH (08:20)
[2020-09-16] MEDS: MIDODRINE HCL 5 MG TABLET PO SCH ×3 (09:00→20:58)
[2020-09-16 11:52] VITALS: BP 128/100
[2020-09-16 15:50] VITALS: BP 129/67
[2020-09-16] MEDS: ACETAMINOPHEN 325 MG TAB PO PRN ×2 (15:54→21:22)
[2020-09-16] MEDS: LEVOFLOXACIN 500 MG/D5W 100 ML IV SCH (18:05)
[2020-09-16 20:03] VITALS: BP 101/56
[2020-09-16] MEDS: INSULIN GLARGINE 100 UNITS/ML 10 ML VIAL SQ SCH (20:56)
[2020-09-16] MEDS: TEMAZEPAM 15 MG CAPSULE PO PRN (20:57)
[2020-09-16] MEDS ORDERED: SOLU-MEDROL 125MG VIAL ONE (21:00)
[2020-09-16] MEDS: SOLU-MEDROL 40MG VIAL IVP SCH (21:07)
[2020-09-17 00:11] VITALS: BP 114/58
[2020-09-17 04:28] VITALS: BP 120/53
[2020-09-17] MEDS: CEFAZOLIN SODIUM 1 GM VIAL IVP SCH ×3 (05:59→21:34)
[2020-09-17] MEDS: SOLU-MEDROL 40MG VIAL IVP SCH ×3 (05:59→21:34)
[2020-09-17] MEDS: INSULIN HUMULIN R 100 UNIT/ML 3ML SQ SCH ×4 (06:46→21:38)
[2020-09-17] MEDS: POLYETHYLENE GLYCOL 3350 17 GM POWD.PACK PO SCH ×2 (07:51)
[2020-09-17 08:00] VITALS: BP 125/59
[2020-09-17] MEDS: ASPIRIN 81MG CHEW TAB PO SCH (08:44)
[2020-09-17] MEDS: PANTOPRAZOLE 40 MG TAB DR PO SCH ×2 (08:44→21:34)
[2020-09-17] MEDS: FLUCONAZOLE 100 MG TAB PO SCH (08:44)
[2020-09-17] MEDS: POTASSIUM CHLORIDE 10% ELIXIR 20 MEQ/15 ML UDCUP PO SCH (08:45)
[2020-09-17] MEDS: BALSAM PERU/CASTOR OIL 60 GM TUBE TP SCH (08:46)
[2020-09-17 12:00] VITALS: BP 108/52
[2020-09-17] MEDS: ACETAMINOPHEN 325 MG TAB PO PRN ×2 (12:23→18:38)
[2020-09-17] MEDS: MIDODRINE HCL 5 MG TABLET PO SCH ×3 (12:48→21:34)
[2020-09-17 16:00] VITALS: BP 103/59
[2020-09-17] MEDS: LEVOFLOXACIN 500 MG/D5W 100 ML IV SCH (17:10)
[2020-09-17 20:12] VITALS: BP 113/60
[2020-09-17] MEDS: TEMAZEPAM 15 MG CAPSULE PO PRN (21:34)
[2020-09-17] MEDS: INSULIN GLARGINE 100 UNITS/ML 10 ML VIAL SQ SCH (21:38)
[2020-09-18] VITALS: BP 126/59
[2020-09-18 04:09] VITALS: BP 151/63
[2020-09-18 04:32] LABS: BASOPHILS % (AUTO) 0.1 % (0.0-5.0); HEMATOCRIT 29.7 % (36-48); LYMPHOCYTES % (AUTO) 1.5 % (21.0-51.0); MEAN CORPUSCULAR HEMOGLOBIN 28.3 pg (27.0-33.0); MEAN CORPUSCULAR VOLUME 85.8 fL (79-99); MONOCYTES % (AUTO) 2.1 % (3.0-13.0); NEUTROPHILS % (AUTO) 95.5 % (40.0-77.0); PLATELET COUNT (AUTO) 146 K/uL (130-400); RED BLOOD CELL COUNT(AUTO) 3.46 MIL/uL (4.00-5.50); RED CELL DISTRIBUTION WIDTH 15.1 % (11.0-15.5); WHITE BLOOD COUNT (AUTO) 13.7 K/uL (4.8-10.8)
[2020-09-18 04:37] LABS: CREATININE 0.5 mg/dL (0.5-1.5); POTASSIUM 4.1 mmol/L (3.5-5.1)
[2020-09-18] MEDS: CEFAZOLIN SODIUM 1 GM VIAL IVP SCH ×2 (05:55→12:41)
[2020-09-18] MEDS: INSULIN HUMULIN R 100 UNIT/ML 3ML SQ SCH ×3 (06:53→16:34)
[2020-09-18] MEDS: POLYETHYLENE GLYCOL 3350 17 GM POWD.PACK PO SCH (07:47)
[2020-09-18 08:00] VITALS: BP 125/57
[2020-09-18] MEDS: FLUCONAZOLE 100 MG TAB PO SCH (08:43)
[2020-09-18] MEDS: ASPIRIN 81MG CHEW TAB PO SCH (08:43)
[2020-09-18] MEDS: MIDODRINE HCL 5 MG TABLET PO SCH ×2 (08:43→14:00)
[2020-09-18] MEDS: PANTOPRAZOLE 40 MG TAB DR PO SCH (08:43)
[2020-09-18] MEDS: POTASSIUM CHLORIDE 10% ELIXIR 20 MEQ/15 ML UDCUP PO SCH (08:44)
[2020-09-18] MEDS: BALSAM PERU/CASTOR OIL 60 GM TUBE TP SCH (08:47)
[2020-09-18] MEDS ORDERED: SOLU-MEDROL 40MG VIAL IVP SCH (09:00)
[2020-09-18] MEDS ORDERED: PERMETHRIN LOTION 1% 59ML BOTTLE TP SCH (10:30)
[2020-09-18 12:00] VITALS: BP 157/60
[2020-09-18] MEDS: ACETAMINOPHEN 325 MG TAB PO PRN (12:51)
[2020-09-18 16:00] VITALS: BP 116/59
[2020-09-19] MEDS ORDERED: PREDNISONE 20 MG TABLET PO SCH (09:00)
== END 2020-09-18 17:58 | DRG 871 ==
LOC: EDH 10:05 → EDHIP 16:51 → 3BH 09-05 22:04 → 2AH 09-07 23:47
PROVIDERS: ADMIT Internal Medicine; ATTEND Internal Medicine
PROC: XW033E5 Introduction of Remdesivir Anti-infective into Peripheral Vein, Percutaneous Approach, New Technology Group 5 (ICD-10-PCS; 2020-09-08)
PROC: 30233N1 Transfusion of Nonautologous Red Blood Cells into Peripheral Vein, Percutaneous Approach (ICD-10-PCS; 2020-09-08)
PROC: 06H03DZ Insertion of Intraluminal Device into Inferior Vena Cava, Percutaneous Approach (ICD-10-PCS; principal; 2020-09-10)
PROC: B5191ZZ Fluoroscopy of Inferior Vena Cava using Low Osmolar Contrast (ICD-10-PCS; 2020-09-10)
PROC: 02HV33Z Insertion of Infusion Device into Superior Vena Cava, Percutaneous Approach (ICD-10-PCS; 2020-09-15)
PROC: B548ZZA Ultrasonography of Superior Vena Cava, Guidance (ICD-10-PCS; 2020-09-15)
DX: A41.01 Sepsis due to Methicillin susceptible Staphylococcus aureus (principal); U07.1 COVID-19; J12.82 Pneumonia due to coronavirus disease 2019; J96.01 Acute respiratory failure with hypoxia; N18.6 End stage renal disease; I82.411 Acute embolism and thrombosis of right femoral vein; E87.0 Hyperosmolality and hypernatremia; D62 Acute posthemorrhagic anemia; I12.0 Hypertensive chronic kidney disease with stage 5 chronic kidney disease or end stage renal disease; N17.9 Acute kidney failure, unspecified; L03.115 Cellulitis of right lower limb; L02.31 Cutaneous abscess of buttock; I74.3 Embolism and thrombosis of arteries of the lower extremities; E87.1 Hypo-osmolality and hyponatremia; B37.49 Other urogenital candidiasis; G93.40 Encephalopathy, unspecified; L97.129 Non-pressure chronic ulcer of left thigh with unspecified severity; K92.2 Gastrointestinal hemorrhage, unspecified; D69.6 Thrombocytopenia, unspecified; E88.09 Other disorders of plasma-protein metabolism, not elsewhere classified; R62.7 Adult failure to thrive; B85.0 Pediculosis due to Pediculus humanus capitis; E11.22 Type 2 diabetes mellitus with diabetic chronic kidney disease; E86.0 Dehydration; R63.1 Polydipsia; D63.8 Anemia in other chronic diseases classified elsewhere; E04.2 Nontoxic multinodular goiter; E11.622 Type 2 diabetes mellitus with other skin ulcer; E66.9 Obesity, unspecified; R91.1 Solitary pulmonary nodule; F03.90 Unspecified dementia, unspecified severity, without behavioral disturbance, psychotic disturbance, mood disturbance, and anxiety; L89.322 Pressure ulcer of left buttock, stage 2; L89.312 Pressure ulcer of right buttock, stage 2; L98.429 Non-pressure chronic ulcer of back with unspecified severity; Z68.34 Body mass index [BMI] 34.0-34.9, adult; Z86.718 Personal history of other venous thrombosis and embolism; Z83.3 Family history of diabetes mellitus; Z79.82 Long term (current) use of aspirin; Z79.01 Long term (current) use of anticoagulants; Z74.01 Bed confinement status; Z68.32 Body mass index [BMI] 32.0-32.9, adult; Z79.84 Long term (current) use of oral hypoglycemic drugs; Z88.0 Allergy status to penicillin
CPT/HCPCS: 36415; 36430; 36600; 37191; 70450; 71045; 71275; 74176; 76536; 76770; 80048; 80051; 80053; 80076; 80202; 80305; 81001; 82270; 82435; 82550; 82607; 82728; 82746; 82803; 82947; 82948; 83540; 83550; 83605; 83615; 83735; 83874; 83880; 83930; 83935; 84100; 84132; 84145; 84295; 84443; 84484; 85014; 85018; 85025; 85027; 85045; 85378; 85610; 85730; 86140; 86334; 86480; 86850; 86880; 86900; 86901; 86922; 87040; 87070; 87077; 87088; 87186; 87426; 93005; 93970; C1769; C1894; C9113; G0378; J0690; J1644; J1650; J1756; J1815; J1940; J1956; J2920; J2930; J3370; J3475; J3480; J3490; J7030; J7040; J7050; J7070; J7120; P9016; Q0167; Q9967; U0003

== ENCOUNTER 2020-09-27 13:51 | Inpatient (IN) | payer OTHER, MEDICARE ==
[~2020-09-27] VITALS: Ht 162.6 cm; Wt 55.1 kg
[~2020-09-27 13:51] MED LIST: GLIP10TA19 PO; LISI2.5T13 PO; LOSA50TA64 PO; METF-444 PO; ROSU10TA28 PO
[2020-09-27 14:15] LABS: ABG BASE EXCESS -23.1 mmol/L (-2.0-3.0); ABG HCO3 5.1 mmol/L (21.0-28.0); ABG PCO2 18 mmHg (32-45)
[2020-09-27 14:20] LABS: BASOPHILS % (AUTO) 0.2 % (0.0-5.0); EOSINOPHILS % (AUTO) 0.3 % (0.0-8.0); HEMATOCRIT 35.4 % (36-48); LYMPHOCYTES % (AUTO) 4.7 % (21.0-51.0); MEAN CORPUSCULAR HEMOGLOBIN 28.3 pg (27.0-33.0); MEAN CORPUSCULAR HGB CONC 28.2 g/dL (32.0-36.0); MEAN CORPUSCULAR VOLUME 100.3 fL (79-99); MONOCYTES % (AUTO) 2.3 % (3.0-13.0); PLATELET COUNT (AUTO) 149 K/uL (130-400); RED BLOOD CELL COUNT(AUTO) 3.53 MIL/uL (4.00-5.50); RED CELL DISTRIBUTION WIDTH 15.8 % (11.0-15.5); WHITE BLOOD COUNT (AUTO) 15.9 K/uL (4.8-10.8)
[2020-09-27] MEDS ORDERED: SODIUM BICARB 50MEQ 50ML VIAL 150 ML ONE (14:25)
[2020-09-27] MEDS ORDERED: 0.9%NACL 100ML 100 ML IV ONE (14:55)
[2020-09-27] MEDS ORDERED: INSULIN HUMULIN R 100 UNIT/ML 3ML ONE (14:55)
[2020-09-27 15:02] LABS: INR 0.98 (0.85-1.15); PROTHROMBIN TIME 10.7 SEC (9.6-11.6)
[2020-09-27 15:03] LABS: PARTIAL THROMBOPLASTIN TIME 22.6 SEC (26.3-35.5)
[2020-09-27 15:03] LABS: APPEARANCE,URINE Cloudy (CLEAR); BILIRUBIN,URINE Negative (NEGATIVE); COLOR,URINE Yellow (YELLOW); GLUCOSE, URINE (UA) >=1000 mg/dL (NEGATIVE); KETONES,URINE >=80 mg/dL (NEGATIVE); LEUKOCYTE ESTERASE ,URINE Negative (NEGATIVE); NITRATE,URINE Negative (NEGATIVE); OCCULT BLOOD,URINE Large (NEGATIVE); PH,URINE 5.5 (5.0-8.0); PROTEIN,URINE Trace mg/dL (NEGATIVE); UROBILINOGEN,URINE 0.2 mg/dL (0.2-1.0)
[2020-09-27 15:06] LABS: ALANINE AMINOTRANSFERASE 11 U/L (12-78); ALBUMIN 2.2 g/dL (3.5-5.0); ASPARTATE AMINOTRANSFERASE 15 U/L (10-37); BILIRUBIN,TOTAL 0.6 mg/dL (0.2-1.0); CREATINE KINASE, TOTAL 99 U/L (21-232); GLOMERULAR FILTR. RATE CALC 26 mL/min (>60); MYOGLOBIN 997 ng/mL (10-92); POTASSIUM 5.2 mmol/L (3.5-5.1); SODIUM SERUM 128 mmol/L (136-145); TOTAL PROTEIN, SERUM 6.3 g/dL (6.0-8.3); TROPONIN I < 0.04 ng/mL (0.00-0.06); UREA NITROGEN, BLOOD 42 mg/dL (7-18)
[2020-09-27 15:20] LABS: CARBON DIOXIDE 7 mmol/L (21-32); CHLORIDE 88 mmol/L (101-111); GLUCOSE,RANDOM 935 mg/dL (70-105)
[2020-09-27 15:23] LABS: BACTERIA,URINE Rare /HPF (None Seen); MUCUS,URINE Few LPF (None Seen); SQUAMOUS EPITHELIAL CELL,UR 0-2 /HPF (0-2); WBC,URINE 0-1 /HPF (0-1); YEAST,URINE BUDDING Many /HPF (None Seen)
[2020-09-27] MEDS ORDERED: 0.9%NACL 1000ML 2,000 ML IV ONE (15:43)
[2020-09-27] MEDS ORDERED: NOREPINEPHRIN 4MG/NS 250ML 250 ML IV ONE (15:54)
[2020-09-27] MEDS ORDERED: SODIUM BICARB 50MEQ 50ML VIAL IV SCH (15:57)
[2020-09-27] MEDS ORDERED: VANCOMYCIN PROTOCOL PER PHARMACY IV SCH (16:00)
[2020-09-27] MEDS: CEFEPIME HCL 2 GM VIAL IVP SCH (16:00)
[2020-09-27 16:07] LABS: ABG BASE EXCESS -14.7 mmol/L (-2.0-3.0); ABG HCO3 10.6 mmol/L (21.0-28.0); ABG OXYGEN SATURATION 99.6 % (95.0-99.0); ABG PCO2 25 mmHg (32-45)
[2020-09-27] MEDS ORDERED: DEXTROSE 5 %-0.45 % NACL 1,000 ML IV PRN (16:15)
[2020-09-27] MEDS ORDERED: NOREPINEPHRIN 4MG/NS 250ML 250 ML IV SCH (16:15)
[2020-09-27] MEDS ORDERED: POTASSIUM CHLORIDE 10MEQ/100ML 100 ML IV PRN (16:15)
[2020-09-27] MEDS: 0.9%NACL 1000ML 1,000 ML IV SCH ×2 (16:15→20:20)
[2020-09-27] MEDS ORDERED: LIDOCAINE HCL-MPF 1% 2ML VIAL IV PRN (16:15)
[2020-09-27] MEDS ORDERED: 0.9%NACL 1000ML 1,000 ML IV SCH (16:15)
[2020-09-27] MEDS ORDERED: CEFEPIME HCL 2 GM VIAL ONE (16:17)
[2020-09-27] MEDS ORDERED: SODIUM BICARB 50MEQ 50ML VIAL 100 ML ONE (16:17)
[2020-09-27] MEDS ORDERED: PANTOPRAZOLE 40 MG/VIAL ONE (16:18)
[2020-09-27 16:35] LABS: ALBUMIN 1.5 g/dL (3.5-5.0); BILIRUBIN,TOTAL 0.5 mg/dL (0.2-1.0); CREATININE 1.6 mg/dL (0.5-1.5); POTASSIUM 3.6 mmol/L (3.5-5.1); TOTAL PROTEIN, SERUM 4.3 g/dL (6.0-8.3)
[2020-09-27] MEDS: SODIUM BICARB 8.4% 50ML SYRING 150 MEQ in DEXTROSE 5%-WATER 850 ML IVP SCH ×2 (18:58→21:30)
[2020-09-27 20:00] VITALS: BP 94/51
[2020-09-27] MEDS ORDERED: INSULIN REGULAR, HUMAN 3ML 100 UNIT in 0.9%NACL 100ML 99 ML IV PRN ×4 (20:00→20:30)
[2020-09-27] MEDS ORDERED: VANCOMYCIN 1G/250ML KIT 250 ML IV SCH (20:30)
[2020-09-27] MEDS: POTASSIUM CHLORIDE 20MEQ/100ML 100 ML IV PRN (20:35)
[2020-09-27 21:00] VITALS: BP 119/57
[2020-09-27 21:32] VITALS: BP 119/87
[2020-09-27 22:24] LABS: CREATININE 1.6 mg/dL (0.5-1.5); POTASSIUM 3.4 mmol/L (3.5-5.1)
[2020-09-27 22:30] VITALS: BP 135/64
[2020-09-27 23:09] LABS: ABG BASE EXCESS 2.2 mmol/L (-2.0-3.0); ABG HCO3 24.7 mmol/L (21.0-28.0); ABG OXYGEN SATURATION 97.3 % (95.0-99.0); ABG PCO2 32 mmHg (32-45)
[2020-09-27 23:30] VITALS: BP 73/39
[2020-09-28] VITALS (34 sets, daily range): BP systolic 88–176; BP diastolic 34–99
[2020-09-28] MEDS: MAGNESIUM 2GM PREMIX 50ML 50 ML IV PRN (00:31)
[2020-09-28] MEDS: CEFEPIME HCL 2 GM VIAL IVP SCH ×3 (00:31→16:49)
[2020-09-28] MEDS: 0.9%NACL 1000ML 1,000 ML IV SCH (02:20)
[2020-09-28 02:59] LABS: CREATININE 1.4 mg/dL (0.5-1.5)
[2020-09-28] MEDS: POTASSIUM CHLORIDE 20MEQ/100ML 100 ML IV PRN ×2 (03:20→04:48)
[2020-09-28 06:06] LABS: CREATININE 1.2 mg/dL (0.5-1.5); MAGNESIUM 1.9 mg/dL (1.80-2.40); PHOSPHORUS 1.3 mg/dL (2.5-4.9); POTASSIUM 3.6 mmol/L (3.5-5.1)
[2020-09-28] MEDS ORDERED: GLUCAGON 1MG KIT 1 MG ML IM PRN (08:30)
[2020-09-28] MEDS ORDERED: DEXTROSE 50%-WATER 50 ML DISP.SYRIN IV PRN (08:30)
[2020-09-28] MEDS: SODIUM BICARB 8.4% 50ML SYRING 150 MEQ in DEXTROSE 5%-WATER 850 ML IVP SCH (08:51)
[2020-09-28] MEDS: DEXTROSE 5 %-0.45 % NACL 1,000 ML IV SCH ×3 (08:54→22:29)
[2020-09-28] MEDS ORDERED: COMPOUND IV REFRIGERATED 1 EACH IVSOLN MISC PRN (09:15)
[2020-09-28] MEDS: INSULIN HUMULIN R 100 UNIT/ML 3ML SQ SCH ×3 (11:51→21:09)
[2020-09-28] MEDS: POTASSIUM PHOS 15 mMOL+NS250ML 250 ML IV PRN (14:49)
[2020-09-28] MEDS: PANTOPRAZOLE 40 MG/VIAL IVP SCH (16:49)
[2020-09-28] MEDS: VANCOMYCIN 1GM+NS 250ML IV SCH (16:49)
[2020-09-29] VITALS (23 sets, daily range): BP systolic 101–149; BP diastolic 47–85
[2020-09-29 04:55] LABS: BASOPHILS % (AUTO) 0.2 % (0.0-5.0); HEMATOCRIT 24.1 % (36-48); LYMPHOCYTES % (AUTO) 8.3 % (21.0-51.0); MEAN CORPUSCULAR HEMOGLOBIN 28.9 pg (27.0-33.0); MEAN CORPUSCULAR HGB CONC 33.6 g/dL (32.0-36.0); MEAN CORPUSCULAR VOLUME 86.1 fL (79-99); NEUTROPHILS % (AUTO) 86.2 % (40.0-77.0); PLATELET COUNT (AUTO) 59 K/uL (130-400); RED CELL DISTRIBUTION WIDTH 16.9 % (11.0-15.5); WHITE BLOOD COUNT (AUTO) 6.1 K/uL (4.8-10.8)
[2020-09-29] MEDS: DEXTROSE 5 %-0.45 % NACL 1,000 ML IV SCH (05:01)
[2020-09-29 05:13] LABS: ALBUMIN 1.3 g/dL (3.5-5.0); BILIRUBIN,TOTAL 0.3 mg/dL (0.2-1.0); CREATININE 0.5 mg/dL (0.5-1.5); MAGNESIUM 1.4 mg/dL (1.80-2.40); PHOSPHORUS 1.1 mg/dL (2.5-4.9); TOTAL PROTEIN, SERUM 4.3 g/dL (6.0-8.3)
[2020-09-29 05:19] LABS: POTASSIUM 2.6 mmol/L (3.5-5.1)
[2020-09-29] MEDS: POTASSIUM CHLORIDE 20MEQ/100ML 100 ML IV PRN ×4 (05:30→11:46)
[2020-09-29] MEDS: MAGNESIUM 2GM PREMIX 50ML 50 ML IV PRN (07:21)
[2020-09-29] MEDS: CEFEPIME HCL 2 GM VIAL IVP SCH ×3 (07:58→16:18)
[2020-09-29] MEDS: INSULIN HUMULIN R 100 UNIT/ML 3ML SQ SCH ×4 (07:59→20:52)
[2020-09-29] MEDS: PANTOPRAZOLE 40 MG/VIAL IVP SCH (08:00)
[2020-09-29 09:47] LABS: PHOSPHORUS 0.8 mg/dL (2.5-4.9)
[2020-09-29 09:49] LABS: POTASSIUM 2.9 mmol/L (3.5-5.1)
[2020-09-29] MEDS ORDERED: SOD PHOSPHATE 45 MMOL/15 ML VI 15 MMOL in 0.9% NACL 250ML 250 ML IV PRN (13:45)
[2020-09-29] MEDS: ACETAMINOPHEN 325 MG TAB PO PRN (15:05)
[2020-09-29] MEDS: VANCOMYCIN 1GM+NS 250ML IV SCH (16:41)
[2020-09-29] MEDS ORDERED: BACLOFEN 10 MG TABLET PO PRN (17:15)
[2020-09-29] MEDS: INSULIN GLARGINE 100 UNITS/ML 10 ML VIAL SQ SCH (21:09)
[2020-09-30] VITALS (29 sets, daily range): BP systolic 89–149; BP diastolic 47–75
[2020-09-30] MEDS: CEFEPIME HCL 2 GM VIAL IVP SCH ×3 (01:06→16:54)
[2020-09-30] MEDS: ACETAMINOPHEN 325 MG TAB PO PRN ×2 (01:07→13:08)
[2020-09-30 05:29] LABS: HEMATOCRIT 25.8 % (36-48); MEAN CORPUSCULAR HEMOGLOBIN 29.4 pg (27.0-33.0); MEAN CORPUSCULAR HGB CONC 34.1 g/dL (32.0-36.0); MEAN CORPUSCULAR VOLUME 86.3 fL (79-99); RED BLOOD CELL COUNT(AUTO) 2.99 MIL/uL (4.00-5.50); RED CELL DISTRIBUTION WIDTH 16.8 % (11.0-15.5); WHITE BLOOD COUNT (AUTO) 6.3 K/uL (4.8-10.8)
[2020-09-30 05:45] LABS: CREATININE 0.4 mg/dL (0.5-1.5); MAGNESIUM 1.9 mg/dL (1.80-2.40); PHOSPHORUS 1.1 mg/dL (2.5-4.9)
[2020-09-30] MEDS: MAGNESIUM 2GM PREMIX 50ML 50 ML IV PRN (06:49)
[2020-09-30] MEDS: INSULIN HUMULIN R 100 UNIT/ML 3ML SQ SCH ×4 (07:30→20:29)
[2020-09-30] MEDS: PANTOPRAZOLE 40 MG/VIAL IVP SCH (09:07)
[2020-09-30] MEDS: POTASSIUM PHOS 15 mMOL+NS250ML 250 ML IV PRN ×2 (09:41→15:43)
[2020-09-30] MEDS: FLUCONAZOLE 200 MG/NS 100 ML 100 ML IV SCH (09:51)
[2020-09-30] MEDS: POTASSIUM CHLORIDE 20MEQ/100ML 100 ML IV PRN (11:07)
[2020-09-30 15:18] LABS: ALBUMIN 1.2 g/dL (3.5-5.0); BILIRUBIN,TOTAL 0.3 mg/dL (0.2-1.0); CREATININE 0.3 mg/dL (0.5-1.5); POTASSIUM 3.4 mmol/L (3.5-5.1); TOTAL PROTEIN, SERUM 4.2 g/dL (6.0-8.3)
[2020-09-30] MEDS: GENTAMICIN SULFATE 0.3% 3.5 GM OPHTH OINT OD SCH (16:54)
[2020-09-30] MEDS: AZITHROMYCIN 250 MG TABLET PO SCH (16:54)
[2020-09-30] MEDS: VANCOMYCIN 1GM+NS 250ML IV SCH (17:00)
[2020-09-30] MEDS: BALSAM PERU/CASTOR OIL 60 GM TUBE TP SCH (18:36)
[2020-09-30] MEDS: INSULIN GLARGINE 100 UNITS/ML 10 ML VIAL SQ SCH (20:35)
[2020-09-30] MEDS: FAMOTIDINE 20MG VIAL IV SCH (20:39)
[2020-10-01] VITALS (7 sets, daily range): BP systolic 91–116; BP diastolic 44–66
[2020-10-01] MEDS: CEFEPIME HCL 2 GM VIAL IVP SCH ×4 (00:18→23:58)
[2020-10-01 03:54] LABS: HEMATOCRIT 28.6 % (36-48); MEAN CORPUSCULAR HEMOGLOBIN 28.6 pg (27.0-33.0); MEAN CORPUSCULAR HGB CONC 33.2 g/dL (32.0-36.0); MEAN CORPUSCULAR VOLUME 86.1 fL (79-99); RED BLOOD CELL COUNT(AUTO) 3.32 MIL/uL (4.00-5.50); RED CELL DISTRIBUTION WIDTH 16.8 % (11.0-15.5); WHITE BLOOD COUNT (AUTO) 5.6 K/uL (4.8-10.8)
[2020-10-01 04:08] LABS: CREATININE 0.4 mg/dL (0.5-1.5); MAGNESIUM 1.8 mg/dL (1.80-2.40); POTASSIUM 3.1 mmol/L (3.5-5.1)
[2020-10-01] MEDS: INSULIN HUMULIN R 100 UNIT/ML 3ML SQ SCH ×4 (06:14→20:13)
[2020-10-01] MEDS ORDERED: POTASSIUM PHOS 15 mMOL+NS250ML 250 ML IV PRN (08:45)
[2020-10-01] MEDS ORDERED: DRONABINOL 2.5 MG CAP PO ONE (09:00)
[2020-10-01] MEDS: GENTAMICIN SULFATE 0.3% 3.5 GM OPHTH OINT OD SCH (10:03)
[2020-10-01] MEDS: DEXTROSE 5%-WATER 1,000 ML IV SCH ×2 (10:03→23:58)
[2020-10-01] MEDS: FAMOTIDINE 20MG VIAL IV SCH ×2 (10:03→20:04)
[2020-10-01] MEDS: BALSAM PERU/CASTOR OIL 60 GM TUBE TP SCH (10:04)
[2020-10-01] MEDS: FLUCONAZOLE 200 MG/NS 100 ML 100 ML IV SCH (10:41)
[2020-10-01] MEDS: ACETAMINOPHEN 325 MG TAB PO PRN (12:37)
[2020-10-01] MEDS ORDERED: PHARMACY COMMUNICATION MISC SCH ×2 (14:00→14:45)
[2020-10-01] MEDS: AZITHROMYCIN 250 MG TABLET PO SCH (14:40)
[2020-10-01] MEDS ORDERED: DRONABINOL 2.5 MG CAP PO SCH (14:45)
[2020-10-01] MEDS: MIDODRINE HCL 5 MG TABLET PO PRN (15:21)
[2020-10-01] MEDS ORDERED: KCL 20 MEQ ERTAB PO PRN (16:15)
[2020-10-01] MEDS ORDERED: POTASSIUM CHLORIDE 20MEQ/100ML 100 ML IV PRN (16:15)
[2020-10-01] MEDS ORDERED: LIDOCAINE HCL-MPF 1% 2ML VIAL IV PRN (16:15)
[2020-10-01] MEDS ORDERED: LACTATED RINGERS 1000ML 1,000 ML IV ONE (16:16)
[2020-10-01] MEDS: POTASSIUM PHOS 15 mMOL+NS250ML 250 ML IV PRN (16:40)
[2020-10-01] MEDS: LACTATED RINGERS 1000ML 1,000 ML IV SCH ×3 (16:55→23:59)
[2020-10-02 04:00] VITALS: BP 105/47
[2020-10-02] MEDS: LACTATED RINGERS 1000ML 1,000 ML IV SCH (04:15)
[2020-10-02 04:37] LABS: BASOPHILS % (AUTO) 0.4 % (0.0-5.0); EOSINOPHILS % (AUTO) 1.1 % (0.0-8.0); HEMATOCRIT 26.9 % (36-48); LYMPHOCYTES % (AUTO) 18.1 % (21.0-51.0); MEAN CORPUSCULAR HEMOGLOBIN 28.2 pg (27.0-33.0); MEAN CORPUSCULAR HGB CONC 32.3 g/dL (32.0-36.0); MEAN CORPUSCULAR VOLUME 87.1 fL (79-99); MONOCYTES % (AUTO) 10.4 % (3.0-13.0); NEUTROPHILS % (AUTO) 65.4 % (40.0-77.0); PLATELET COUNT (AUTO) 157 K/uL (130-400); RED BLOOD CELL COUNT(AUTO) 3.09 MIL/uL (4.00-5.50); RED CELL DISTRIBUTION WIDTH 16.8 % (11.0-15.5); WHITE BLOOD COUNT (AUTO) 4.5 K/uL (4.8-10.8)
[2020-10-02 04:48] LABS: CREATININE 0.4 mg/dL (0.5-1.5); POTASSIUM 3.3 mmol/L (3.5-5.1)
[2020-10-02] MEDS: POTASSIUM CHLORIDE 20MEQ/100ML 100 ML IV PRN (05:16)
[2020-10-02] MEDS: INSULIN HUMULIN R 100 UNIT/ML 3ML SQ SCH ×4 (06:03→20:50)
[2020-10-02 08:00] VITALS: BP 114/68
[2020-10-02] MEDS: GENTAMICIN SULFATE 0.3% 3.5 GM OPHTH OINT OD SCH (08:08)
[2020-10-02] MEDS: CEFEPIME HCL 2 GM VIAL IVP SCH ×3 (08:08→23:38)
[2020-10-02] MEDS: BALSAM PERU/CASTOR OIL 60 GM TUBE TP SCH (08:08)
[2020-10-02] MEDS: FAMOTIDINE 20MG VIAL IV SCH ×2 (08:09→20:39)
[2020-10-02] MEDS: DRONABINOL 2.5 MG CAP PO SCH (08:09)
[2020-10-02] MEDS: FLUCONAZOLE 100 MG TAB PO SCH (08:09)
[2020-10-02 09:35] VITALS: BP 95/49
[2020-10-02] MEDS: MIDODRINE HCL 5 MG TABLET PO PRN (09:37)
[2020-10-02 12:00] VITALS: BP 109/73
[2020-10-02] MEDS: MIDODRINE HCL 5 MG TABLET PO SCH ×2 (14:00→18:37)
[2020-10-02 16:00] VITALS: BP 127/68
[2020-10-02] MEDS: ACETAMINOPHEN 325 MG TAB PO PRN (16:49)
[2020-10-02 20:00] VITALS: BP 118/59
[2020-10-03] VITALS (10 sets, daily range): BP systolic 99–148; BP diastolic 58–72
[2020-10-03] MEDS: ACETAMINOPHEN 325 MG TAB PO PRN ×2 (03:04→17:16)
[2020-10-03] MEDS: MIDODRINE HCL 5 MG TABLET PO SCH ×3 (05:50→21:09)
[2020-10-03 05:59] LABS: HEMATOCRIT 25.7 % (36-48); MEAN CORPUSCULAR HEMOGLOBIN 28.8 pg (27.0-33.0); MEAN CORPUSCULAR HGB CONC 33.1 g/dL (32.0-36.0); MEAN CORPUSCULAR VOLUME 87.1 fL (79-99); RED BLOOD CELL COUNT(AUTO) 2.95 MIL/uL (4.00-5.50); RED CELL DISTRIBUTION WIDTH 16.9 % (11.0-15.5); WHITE BLOOD COUNT (AUTO) 5.3 K/uL (4.8-10.8)
[2020-10-03 06:15] LABS: CREATININE 0.4 mg/dL (0.5-1.5); POTASSIUM 3.3 mmol/L (3.5-5.1)
[2020-10-03] MEDS: POTASSIUM CHLORIDE 10% ELIXIR 20 MEQ/15 ML UDCUP PO PRN ×2 (07:15→11:59)
[2020-10-03] MEDS: CEFEPIME HCL 2 GM VIAL IVP SCH ×2 (07:15→16:31)
[2020-10-03] MEDS: INSULIN HUMULIN R 100 UNIT/ML 3ML SQ SCH ×4 (07:30→21:13)
[2020-10-03] MEDS: FAMOTIDINE 20MG VIAL IV SCH ×2 (08:45→21:09)
[2020-10-03] MEDS: BALSAM PERU/CASTOR OIL 60 GM TUBE TP SCH (08:45)
[2020-10-03] MEDS: DRONABINOL 2.5 MG CAP PO SCH (08:45)
[2020-10-03] MEDS: FLUCONAZOLE 100 MG TAB PO SCH (08:45)
[2020-10-03] MEDS: GENTAMICIN SULFATE 0.3% 3.5 GM OPHTH OINT OD SCH (08:45)
[2020-10-03] MEDS: DEXTROSE 5%-WATER 1,000 ML IV SCH (09:41)
[2020-10-03 19:25] LABS: CREATININE 0.5 mg/dL (0.5-1.5); POTASSIUM 3.9 mmol/L (3.5-5.1)
[2020-10-04] VITALS: BP 112/52
[2020-10-04 03:30] VITALS: BP 127/71
[2020-10-04] MEDS: DEXTROSE 5%-WATER 1,000 ML IV SCH (05:28)
[2020-10-04] MEDS: MIDODRINE HCL 5 MG TABLET PO SCH (06:24)
[2020-10-04] MEDS: FAMOTIDINE 20MG VIAL IV SCH (09:17)
[2020-10-04] MEDS: DRONABINOL 2.5 MG CAP PO SCH (09:17)
[2020-10-04] MEDS: FLUCONAZOLE 100 MG TAB PO SCH (09:17)
[2020-10-04] MEDS: CEFEPIME HCL 2 GM VIAL IVP SCH ×2 (09:18)
[2020-10-04] MEDS: BALSAM PERU/CASTOR OIL 60 GM TUBE TP SCH (09:18)
[2020-10-04] MEDS: GENTAMICIN SULFATE 0.3% 3.5 GM OPHTH OINT OD SCH (09:19)
[2020-10-04] MEDS: INSULIN HUMULIN R 100 UNIT/ML 3ML SQ SCH ×2 (09:45→12:20)
[2020-10-04 10:18] VITALS: BP 127/62
[2020-10-04] MEDS ORDERED: FLUOXETINE HCL 10 MG CAPSULE PO SCH (21:00)
== END 2020-10-04 13:03 | DRG 871 ==
LOC: EDH 13:51 → EDHIP 16:08 → 2DH 16:58 → 2BH 09-30 00:13 → 2AH 09-30 20:59
PROVIDERS: ADMIT Internal Medicine Pulmonary Disease; ATTEND Internal Medicine Pulmonary Disease
DX: A41.01 Sepsis due to Methicillin susceptible Staphylococcus aureus (principal); E11.10 Type 2 diabetes mellitus with ketoacidosis without coma; E43 Unspecified severe protein-calorie malnutrition; U07.1 COVID-19; J18.9 Pneumonia, unspecified organism; E87.1 Hypo-osmolality and hyponatremia; N17.9 Acute kidney failure, unspecified; B37.49 Other urogenital candidiasis; D69.6 Thrombocytopenia, unspecified; E87.6 Hypokalemia; D64.9 Anemia, unspecified; E83.42 Hypomagnesemia; L89.322 Pressure ulcer of left buttock, stage 2; L89.312 Pressure ulcer of right buttock, stage 2; E78.00 Pure hypercholesterolemia, unspecified; I10 Essential (primary) hypertension; Z86.718 Personal history of other venous thrombosis and embolism; Z95.828 Presence of other vascular implants and grafts; Z79.4 Long term (current) use of insulin; E11.649 Type 2 diabetes mellitus with hypoglycemia without coma; Z68.20 Body mass index [BMI] 20.0-20.9, adult
CPT/HCPCS: 36415; 36600; 70450; 71045; 80048; 80053; 80202; 81001; 82435; 82550; 82803; 82947; 82948; 83605; 83735; 83874; 83930; 84100; 84132; 84145; 84295; 84484; 85018; 85025; 85027; 85610; 85730; 86850; 86900; 86901; 87040; 87088; 87426; 87804; 93005; 99291; C9113; G0378; J0692; J1450; J1815; J3370; J3475; J3480; J3490; J7030; J7042; J7070; J7120; Q0167; U0003

== ENCOUNTER 2020-10-26 17:18 | Inpatient (IN) | payer OTHER, MEDICARE ==
[~2020-10-26] VITALS: Ht 154.9 cm; Wt 58.5 kg
[2020-10-26 17:51] LABS: APPEARANCE,URINE Turbid (CLEAR); BILIRUBIN,URINE Negative (NEGATIVE); COLOR,URINE Yellow (YELLOW); GLUCOSE, URINE (UA) Negative (NEGATIVE); KETONES,URINE Negative (NEGATIVE); LEUKOCYTE ESTERASE ,URINE Large (NEGATIVE); NITRATE,URINE Negative (NEGATIVE); OCCULT BLOOD,URINE Small (NEGATIVE); PH,URINE 6.5 (5.0-8.0); PROTEIN,URINE POS 1+ mg/dL (NEGATIVE); UROBILINOGEN,URINE 0.2 mg/dL (0.2-1.0)
[2020-10-26] MEDS ORDERED: ACETAMINOPHEN 325 MG TAB ONE (18:03)
[2020-10-26 18:05] LABS: BACTERIA,URINE Few /HPF (None Seen); MUCUS,URINE Few LPF (None Seen); SQUAMOUS EPITHELIAL CELL,UR 0-2 /HPF (0-2); YEAST,URINE BUDDING Many /HPF (None Seen)
[2020-10-26] MEDS ORDERED: CEFTRIAXONE 1G VIAL ONE (18:09)
[2020-10-26] MEDS ORDERED: ACETAMINOPHEN 650 MG SUPPOSITORY RC ONE (18:09)
[2020-10-26 18:21] LABS: BASOPHILS % (AUTO) 0.1 % (0.0-5.0); EOSINOPHILS % (AUTO) 0.1 % (0.0-8.0); HEMATOCRIT 22.6 % (36-48); MEAN CORPUSCULAR HEMOGLOBIN 28.2 pg (27.0-33.0); MEAN CORPUSCULAR VOLUME 91.1 fL (79-99); MONOCYTES % (AUTO) 4.2 % (3.0-13.0); NEUTROPHILS % (AUTO) 84.4 % (40.0-77.0); NUCLEATED RED BLOOD CELLS 0.2 % (0.0-0.19); PLATELET COUNT (AUTO) 397 K/uL (130-400); RED BLOOD CELL COUNT(AUTO) 2.48 MIL/uL (4.00-5.50); RED CELL DISTRIBUTION WIDTH 17.6 % (11.0-15.5); WHITE BLOOD COUNT (AUTO) 17.2 K/uL (4.8-10.8)
[2020-10-26 18:36] LABS: INR 1.06 (0.85-1.15); PROTHROMBIN TIME 11.5 SEC (9.6-11.6)
[2020-10-26 18:37] LABS: PARTIAL THROMBOPLASTIN TIME < 20.0 SEC (26.3-35.5)
[2020-10-26 18:41] LABS: ALBUMIN 2.1 g/dL (3.5-5.0); BILIRUBIN,TOTAL 0.2 mg/dL (0.2-1.0); CREATININE 1.1 mg/dL (0.5-1.5); TOTAL PROTEIN, SERUM 6.2 g/dL (6.0-8.3)
[2020-10-26 18:49] LABS: POTASSIUM 2.5 mmol/L (3.5-5.1)
[2020-10-26 19:05] LABS: B-TYPE NATRIURETIC PEPTIDE 119 pg/mL (0-100)
[2020-10-26] MEDS ORDERED: LIDOCAINE HCL-MPF 1% 2ML VIAL ONE (19:21)
[2020-10-26] MEDS ORDERED: POTASSIUM CHLORIDE 20MEQ/100ML 100 ML IV ONE (19:22)
[2020-10-26] MEDS ORDERED: POTASSIUM BICARB/CIT AC 25 MEQ TABLET.EFF ONE (19:26)
[2020-10-26] MEDS: 0.9%NACL 1000ML 1,000 ML IV SCH ×2 (20:15→21:59)
[2020-10-26] MEDS ORDERED: GLUCAGON 1MG KIT 1 MG ML IM PRN (20:15)
[2020-10-26] MEDS ORDERED: NITROGLYCERIN 0.4 MG SL TAB SL PRN (20:15)
[2020-10-26] MEDS ORDERED: DEXTROSE 50%-WATER 50 ML DISP.SYRIN IV PRN (20:15)
[2020-10-26] MEDS ORDERED: ONDANSETRON 4MG INJ IV PRN (20:15)
[2020-10-26] MEDS ORDERED: ACETAMINOPHEN 650 MG SUPPOSITORY RC PRN (20:15)
[2020-10-26 20:25] LABS: HEMOGLOBIN A1C 8.2 % (4.0-6.0)
[2020-10-26 20:45] VITALS: BP 142/61
[2020-10-26] MEDS: INSULIN HUMULIN R 100 UNIT/ML 3ML SQ SCH (21:00)
[2020-10-26] MEDS: FAMOTIDINE 20MG VIAL IV SCH (21:00)
[2020-10-26 21:45] LABS: CREATINE KINASE, TOTAL 19 U/L (21-232); MYOGLOBIN 40 ng/mL (10-92); TROPONIN I < 0.04 ng/mL (0.00-0.06)
[2020-10-26] MEDS: ACETAMINOPHEN 650 MG SUPPOSITORY RC PRN (23:03)
[2020-10-26] MEDS ORDERED: PERMETHRIN LOTION 1% 59ML BOTTLE TP SCH (23:30)
[2020-10-26 23:40] VITALS: BP 134/64
[2020-10-27] MEDS ORDERED: HONE15GE TP (01:11)
[2020-10-27] MEDS ORDERED: LACT10SO9 PO (01:11)
[2020-10-27] MEDS ORDERED: MEGE400O4 PO (01:11)
[2020-10-27] MEDS ORDERED: ATOR20TA65 PO (01:11)
[2020-10-27] MEDS ORDERED: OMEP20CA12 PO (01:11)
[2020-10-27] MEDS ORDERED: LOSA50TA64 PO (01:11)
[2020-10-27] MEDS ORDERED: BACL10TA PO (01:11)
[2020-10-27] MEDS ORDERED: ASCO500C18 PO (01:11)
[2020-10-27] MEDS ORDERED: FLUO20CA30 PO (01:11)
[2020-10-27] MEDS ORDERED: MULT-1203 PO (01:11)
[2020-10-27] MEDS ORDERED: GLIP10TA19 PO (01:11)
[2020-10-27] MEDS ORDERED: FERS325 PO (01:11)
[2020-10-27] MEDS ORDERED: MIDO10TA PO (01:11)
[2020-10-27] MEDS ORDERED: METF-444 PO (01:11)
[2020-10-27] MEDS ORDERED: FURO20TA4 PO (01:11)
[2020-10-27] MEDS ORDERED: BALS60OI TP (01:11)
[2020-10-27 04:07] VITALS: BP 140/64
[2020-10-27 05:17] LABS: BASOPHILS % (AUTO) 0.4 % (0.0-5.0); EOSINOPHILS % (AUTO) 0.1 % (0.0-8.0); HEMATOCRIT 27.1 % (36-48); LYMPHOCYTES % (AUTO) 5.9 % (21.0-51.0); MEAN CORPUSCULAR HEMOGLOBIN 28.4 pg (27.0-33.0); MEAN CORPUSCULAR HGB CONC 32.1 g/dL (32.0-36.0); MEAN CORPUSCULAR VOLUME 88.6 fL (79-99); MONOCYTES % (AUTO) 2.9 % (3.0-13.0); NEUTROPHILS % (AUTO) 85.3 % (40.0-77.0); NUCLEATED RED BLOOD CELLS 0.4 % (0.0-0.19); PLATELET COUNT (AUTO) 335 K/uL (130-400); RED BLOOD CELL COUNT(AUTO) 3.06 MIL/uL (4.00-5.50); RED CELL DISTRIBUTION WIDTH 17.3 % (11.0-15.5); WHITE BLOOD COUNT (AUTO) 16.3 K/uL (4.8-10.8)
[2020-10-27 05:33] LABS: BILIRUBIN,TOTAL 0.4 mg/dL (0.2-1.0); CREATININE 0.8 mg/dL (0.5-1.5); MAGNESIUM 1.9 mg/dL (1.80-2.40); TOTAL PROTEIN, SERUM 5.9 g/dL (6.0-8.3)
[2020-10-27 05:59] LABS: POTASSIUM 2.8 mmol/L (3.5-5.1)
[2020-10-27] MEDS: INSULIN HUMULIN R 100 UNIT/ML 3ML SQ SCH ×4 (06:08→20:05)
[2020-10-27] MEDS ORDERED: POTASSIUM CHLORIDE 20 MEQ/100 ML BAG IV SCH (06:15)
[2020-10-27] MEDS ORDERED: FUROSEMIDE 20MG VIAL IV SCH (06:30)
[2020-10-27] MEDS ORDERED: MEGESTROL 400 MG/10 ML UDCUP PO PRN (07:30)
[2020-10-27] MEDS ORDERED: BACLOFEN 10 MG TABLET PO PRN (07:30)
[2020-10-27 08:00] VITALS: BP 132/71
[2020-10-27] MEDS: BALSAM PERU/CASTOR OIL 60 GM TUBE TP SCH (09:00)
[2020-10-27] MEDS: LOSARTAN 50 MG TABLET PO SCH (09:00)
[2020-10-27] MEDS: LACTULOSE 20 GM/30 ML UDCUP PO SCH (09:00)
[2020-10-27] MEDS: FERROUS SULFATE 325 MG TABLET.DR PO SCH (09:00)
[2020-10-27] MEDS ORDERED: FUROSEMIDE 20 MG TABLET PO SCH (09:00)
[2020-10-27] MEDS: HONEY 1 APPL/ML TUBE TP SCH (09:00)
[2020-10-27] MEDS: ASCORBIC ACID 500 MG TAB PO SCH (09:00)
[2020-10-27] MEDS: CEFTRIAXONE 1G VIAL IV SCH (10:13)
[2020-10-27] MEDS: FAMOTIDINE 20MG VIAL IV SCH ×2 (10:13→20:34)
[2020-10-27 12:00] VITALS: BP 113/58
[2020-10-27] MEDS ORDERED: LIDOCAINE HCL-MPF 1% 2ML VIAL IV PRN (12:45)
[2020-10-27] MEDS: POTASSIUM CHLORIDE 20MEQ/100ML 100 ML IV PRN ×2 (12:45→17:05)
[2020-10-27 16:00] VITALS: BP 102/62
[2020-10-27] MEDS: ATORVASTATIN 20 MG TABLET PO SCH (19:31)
[2020-10-27] MEDS: FLUOXETINE HCL 20 MG CAPSULE PO SCH (19:31)
[2020-10-27 20:42] VITALS: BP 109/62
[2020-10-28 00:46] VITALS: BP 114/54
[2020-10-28 04:30] VITALS: BP_SYST 114; BP_SYST 143; BP_DIAS 73
[2020-10-28] MEDS: INSULIN HUMULIN R 100 UNIT/ML 3ML SQ SCH ×4 (05:01→20:48)
[2020-10-28 05:15] LABS: BASOPHILS % (AUTO) 0.3 % (0.0-5.0); HEMATOCRIT 27.5 % (36-48); MEAN CORPUSCULAR HEMOGLOBIN 28.3 pg (27.0-33.0); MEAN CORPUSCULAR VOLUME 88.4 fL (79-99); MONOCYTES % (AUTO) 5.6 % (3.0-13.0); NEUTROPHILS % (AUTO) 75.9 % (40.0-77.0); NUCLEATED RED BLOOD CELLS 0.9 % (0.0-0.19); PLATELET COUNT (AUTO) 279 K/uL (130-400); RED BLOOD CELL COUNT(AUTO) 3.11 MIL/uL (4.00-5.50); RED CELL DISTRIBUTION WIDTH 18.7 % (11.0-15.5); WHITE BLOOD COUNT (AUTO) 12.8 K/uL (4.8-10.8)
[2020-10-28 06:31] LABS: CREATININE 0.7 mg/dL (0.5-1.5); POTASSIUM 3.7 mmol/L (3.5-5.1)
[2020-10-28] MEDS: POTASSIUM CHLORIDE 20MEQ/100ML 100 ML IV PRN (06:39)
[2020-10-28] MEDS ORDERED: DEXTROSE 5%-WATER 500 ML IV ONE (07:45)
[2020-10-28] MEDS: CEFTRIAXONE 1G VIAL IV SCH (08:19)
[2020-10-28] MEDS: FAMOTIDINE 20MG VIAL IV SCH ×2 (08:19→20:18)
[2020-10-28] MEDS: FERROUS SULFATE 325 MG TABLET.DR PO SCH (09:00)
[2020-10-28] MEDS: LACTULOSE 20 GM/30 ML UDCUP PO SCH (09:00)
[2020-10-28] MEDS: HONEY 1 APPL/ML TUBE TP SCH (09:00)
[2020-10-28] MEDS: BALSAM PERU/CASTOR OIL 60 GM TUBE TP SCH ×2 (09:00→20:18)
[2020-10-28] MEDS: LOSARTAN 50 MG TABLET PO SCH (09:00)
[2020-10-28] MEDS: ASCORBIC ACID 500 MG TAB PO SCH (09:00)
[2020-10-28 09:30] VITALS: BP 126/65
[2020-10-28 12:23] LABS: CREATININE 0.8 mg/dL (0.5-1.5); POTASSIUM 4.1 mmol/L (3.5-5.1)
[2020-10-28] MEDS: FLUCONAZOLE 200 MG/NS 100 ML 100 ML IV SCH (12:24)
[2020-10-28 13:45] VITALS: BP 130/69
[2020-10-28 17:03] VITALS: BP 125/60
[2020-10-28 20:00] VITALS: BP 113/60
[2020-10-28] MEDS: ATORVASTATIN 20 MG TABLET PO SCH (20:18)
[2020-10-28] MEDS: FLUOXETINE HCL 20 MG CAPSULE PO SCH (20:18)
[2020-10-29] VITALS: BP 127/66
[2020-10-29 04:00] VITALS: BP 126/70
[2020-10-29 05:27] LABS: BASOPHILS % (AUTO) 0.3 % (0.0-5.0); EOSINOPHILS % (AUTO) 1.7 % (0.0-8.0); HEMATOCRIT 27.4 % (36-48); MEAN CORPUSCULAR HEMOGLOBIN 28.1 pg (27.0-33.0); MEAN CORPUSCULAR VOLUME 90.4 fL (79-99); MONOCYTES % (AUTO) 5.4 % (3.0-13.0); NEUTROPHILS % (AUTO) 77.4 % (40.0-77.0); NUCLEATED RED BLOOD CELLS 0.7 % (0.0-0.19); PLATELET COUNT (AUTO) 233 K/uL (130-400); RED BLOOD CELL COUNT(AUTO) 3.03 MIL/uL (4.00-5.50); RED CELL DISTRIBUTION WIDTH 18.6 % (11.0-15.5); WHITE BLOOD COUNT (AUTO) 10.1 K/uL (4.8-10.8)
[2020-10-29 05:42] LABS: CREATININE 0.6 mg/dL (0.5-1.5); POTASSIUM 3.6 mmol/L (3.5-5.1)
[2020-10-29] MEDS: INSULIN HUMULIN R 100 UNIT/ML 3ML SQ SCH ×4 (05:42→20:20)
[2020-10-29] MEDS: POTASSIUM CHLORIDE 20MEQ/100ML 100 ML IV PRN (05:45)
[2020-10-29 05:51] LABS: % IRON SATURATION 20.1 % (22-44)
[2020-10-29] MEDS ORDERED: DEXTROSE 5%-WATER 500 ML IV ONE (08:15)
[2020-10-29 08:20] VITALS: BP 130/68
[2020-10-29] MEDS: FAMOTIDINE 20MG VIAL IV SCH ×2 (09:46→20:16)
[2020-10-29] MEDS: ASCORBIC ACID 500 MG TAB PO SCH (09:47)
[2020-10-29] MEDS: CEFTRIAXONE 1G VIAL IV SCH (09:47)
[2020-10-29] MEDS: FLUCONAZOLE 200 MG/NS 100 ML 100 ML IV SCH (09:47)
[2020-10-29] MEDS: FERROUS SULFATE 325 MG TABLET.DR PO SCH (09:47)
[2020-10-29] MEDS: BALSAM PERU/CASTOR OIL 60 GM TUBE TP SCH ×3 (09:47→20:16)
[2020-10-29] MEDS: LOSARTAN 50 MG TABLET PO SCH (09:47)
[2020-10-29] MEDS: LACTULOSE 20 GM/30 ML UDCUP PO SCH (09:47)
[2020-10-29] MEDS: DEXTROSE 5%-WATER 1,000 ML IV SCH (12:00)
[2020-10-29] MEDS ORDERED: COMPOUND IV MISC 1 EACH IVSOLN MISC PRN (12:45)
[2020-10-29] MEDS: IRON SUCROSE COMPLEX 100 MG in 0.9%NACL 50ML 50 ML IV SCH (12:53)
[2020-10-29 13:45] VITALS: BP 117/67
[2020-10-29] MEDS ORDERED: VANCOMYCIN PROTOCOL PER PHARMACY IV SCH (15:15)
[2020-10-29 17:38] VITALS: BP 121/75
[2020-10-29] MEDS: VANCOMYCIN 1G/250ML KIT 250 ML IV SCH (17:46)
[2020-10-29 19:35] VITALS: BP 156/76
[2020-10-29] MEDS: FLUOXETINE HCL 20 MG CAPSULE PO SCH (20:15)
[2020-10-29] MEDS: ATORVASTATIN 20 MG TABLET PO SCH (20:15)
[2020-10-30] VITALS (7 sets, daily range): BP systolic 122–151; BP diastolic 68–82
[2020-10-30] MEDS ORDERED: DEXTROSE 5%-WATER 1,000 ML IV ONE (01:22)
[2020-10-30] MEDS: DEXTROSE 5%-WATER 1,000 ML IV SCH ×2 (01:25→14:40)
[2020-10-30] MEDS: INSULIN HUMULIN R 100 UNIT/ML 3ML SQ SCH ×4 (05:13→20:50)
[2020-10-30 05:20] LABS: BASOPHILS % (AUTO) 0.3 % (0.0-5.0); EOSINOPHILS % (AUTO) 3.1 % (0.0-8.0); HEMATOCRIT 27.9 % (36-48); LYMPHOCYTES % (AUTO) 11.6 % (21.0-51.0); MEAN CORPUSCULAR HEMOGLOBIN 27.3 pg (27.0-33.0); MEAN CORPUSCULAR HGB CONC 30.1 g/dL (32.0-36.0); MEAN CORPUSCULAR VOLUME 90.6 fL (79-99); MONOCYTES % (AUTO) 4.7 % (3.0-13.0); NEUTROPHILS % (AUTO) 76.5 % (40.0-77.0); NUCLEATED RED BLOOD CELLS 0.3 % (0.0-0.19); PLATELET COUNT (AUTO) 197 K/uL (130-400); RED BLOOD CELL COUNT(AUTO) 3.08 MIL/uL (4.00-5.50); RED CELL DISTRIBUTION WIDTH 18.5 % (11.0-15.5)
[2020-10-30 05:29] LABS: CREATININE 0.6 mg/dL (0.5-1.5); POTASSIUM 3.1 mmol/L (3.5-5.1)
[2020-10-30] MEDS: POTASSIUM CHLORIDE 20MEQ/100ML 100 ML IV PRN ×2 (05:48→12:24)
[2020-10-30] MEDS: BALSAM PERU/CASTOR OIL 60 GM TUBE TP SCH ×3 (09:00→20:49)
[2020-10-30] MEDS: CEFTRIAXONE 1G VIAL IV SCH (10:00)
[2020-10-30] MEDS: FAMOTIDINE 20MG VIAL IV SCH ×2 (10:00→20:49)
[2020-10-30] MEDS: FLUCONAZOLE 200 MG/NS 100 ML 100 ML IV SCH (10:00)
[2020-10-30] MEDS: ASCORBIC ACID 500 MG TAB PO SCH (10:12)
[2020-10-30] MEDS: LOSARTAN 50 MG TABLET PO SCH (10:12)
[2020-10-30] MEDS: LACTULOSE 20 GM/30 ML UDCUP PO SCH (10:12)
[2020-10-30] MEDS: FERROUS SULFATE 325 MG TABLET.DR PO SCH (10:12)
[2020-10-30] MEDS: VANCOMYCIN 1G/250ML KIT 250 ML IV SCH ×2 (10:22→20:51)
[2020-10-30] MEDS: IRON SUCROSE COMPLEX 100 MG in 0.9%NACL 50ML 50 ML IV SCH (11:00)
[2020-10-30] MEDS ORDERED: COMPOUND IV MISC 1 EACH IVSOLN MISC PRN (11:30)
[2020-10-30] MEDS: FLUOXETINE HCL 20 MG CAPSULE PO SCH (20:49)
[2020-10-30] MEDS: ATORVASTATIN 20 MG TABLET PO SCH (20:49)
[2020-10-31] MEDS ORDERED: DEXTROSE 5%-WATER 1,000 ML IV ONE ×2 (03:23→23:41)
[2020-10-31 03:44] VITALS: BP 119/65
[2020-10-31] MEDS: DEXTROSE 5%-WATER 1,000 ML IV SCH ×2 (04:32→16:50)
[2020-10-31] MEDS: INSULIN HUMULIN R 100 UNIT/ML 3ML SQ SCH ×4 (06:16→20:21)
[2020-10-31] MEDS: FLUCONAZOLE 200 MG/NS 100 ML 100 ML IV SCH (08:14)
[2020-10-31] MEDS: FERROUS SULFATE 325 MG TABLET.DR PO SCH (08:15)
[2020-10-31] MEDS: FAMOTIDINE 20MG VIAL IV SCH ×2 (08:15→20:09)
[2020-10-31] MEDS: LACTULOSE 20 GM/30 ML UDCUP PO SCH (08:15)
[2020-10-31] MEDS: CEFTRIAXONE 1G VIAL IV SCH (08:15)
[2020-10-31] MEDS: ASCORBIC ACID 500 MG TAB PO SCH (08:15)
[2020-10-31] MEDS: LOSARTAN 50 MG TABLET PO SCH (08:15)
[2020-10-31] MEDS: BALSAM PERU/CASTOR OIL 60 GM TUBE TP SCH ×3 (08:16→20:23)
[2020-10-31 08:31] VITALS: BP 131/72
[2020-10-31 08:31] LABS: BASOPHILS % (AUTO) 0.4 % (0.0-5.0); EOSINOPHILS % (AUTO) 2.8 % (0.0-8.0); HEMATOCRIT 28.4 % (36-48); LYMPHOCYTES % (AUTO) 11.9 % (21.0-51.0); MEAN CORPUSCULAR HEMOGLOBIN 27.5 pg (27.0-33.0); MEAN CORPUSCULAR HGB CONC 30.6 g/dL (32.0-36.0); MEAN CORPUSCULAR VOLUME 89.9 fL (79-99); NEUTROPHILS % (AUTO) 75.3 % (40.0-77.0); NUCLEATED RED BLOOD CELLS 0.3 % (0.0-0.19); PLATELET COUNT (AUTO) 164 K/uL (130-400); RED BLOOD CELL COUNT(AUTO) 3.16 MIL/uL (4.00-5.50); RED CELL DISTRIBUTION WIDTH 18.1 % (11.0-15.5); WHITE BLOOD COUNT (AUTO) 11.3 K/uL (4.8-10.8)
[2020-10-31 08:45] LABS: CREATININE 0.6 mg/dL (0.5-1.5); POTASSIUM 3.7 mmol/L (3.5-5.1)
[2020-10-31] MEDS: VANCOMYCIN 1G/250ML KIT 250 ML IV SCH ×2 (09:00→20:09)
[2020-10-31] MEDS: IRON SUCROSE COMPLEX 100 MG in 0.9%NACL 50ML 50 ML IV SCH (10:35)
[2020-10-31 12:18] VITALS: BP 105/62
[2020-10-31 15:57] VITALS: BP 125/71
[2020-10-31 19:33] VITALS: BP 118/63
[2020-10-31] MEDS: ATORVASTATIN 20 MG TABLET PO SCH (20:09)
[2020-10-31] MEDS: FLUOXETINE HCL 20 MG CAPSULE PO SCH (20:09)
[2020-10-31 23:21] VITALS: BP 121/59
[2020-11-01 03:43] VITALS: BP 112/61
[2020-11-01] MEDS: DEXTROSE 5%-WATER 1,000 ML IV SCH (05:23)
[2020-11-01 05:29] LABS: BASOPHILS % (AUTO) 0.4 % (0.0-5.0); EOSINOPHILS % (AUTO) 2.2 % (0.0-8.0); HEMATOCRIT 26.8 % (36-48); LYMPHOCYTES % (AUTO) 11.6 % (21.0-51.0); MEAN CORPUSCULAR HEMOGLOBIN 28.3 pg (27.0-33.0); MEAN CORPUSCULAR HGB CONC 31.7 g/dL (32.0-36.0); MEAN CORPUSCULAR VOLUME 89.3 fL (79-99); MONOCYTES % (AUTO) 4.9 % (3.0-13.0); NEUTROPHILS % (AUTO) 74.7 % (40.0-77.0); NUCLEATED RED BLOOD CELLS 0.2 % (0.0-0.19); PLATELET COUNT (AUTO) 154 K/uL (130-400); RED CELL DISTRIBUTION WIDTH 17.9 % (11.0-15.5); WHITE BLOOD COUNT (AUTO) 10.9 K/uL (4.8-10.8)
[2020-11-01 05:48] LABS: CREATININE 0.6 mg/dL (0.5-1.5); POTASSIUM 3.6 mmol/L (3.5-5.1)
[2020-11-01] MEDS: POTASSIUM CHLORIDE 20MEQ/100ML 100 ML IV PRN (06:13)
[2020-11-01] MEDS: INSULIN HUMULIN R 100 UNIT/ML 3ML SQ SCH ×4 (06:20→21:00)
[2020-11-01] MEDS: FERROUS SULFATE 325 MG TABLET.DR PO SCH (08:25)
[2020-11-01] MEDS: VANCOMYCIN 1G/250ML KIT 250 ML IV SCH ×2 (08:25→21:14)
[2020-11-01] MEDS: FAMOTIDINE 20MG VIAL IV SCH ×2 (08:25→21:14)
[2020-11-01] MEDS: CEFTRIAXONE 1G VIAL IV SCH (08:25)
[2020-11-01] MEDS: FLUCONAZOLE 200 MG/NS 100 ML 100 ML IV SCH (08:25)
[2020-11-01] MEDS: IRON SUCROSE COMPLEX 100 MG in 0.9%NACL 50ML 50 ML IV SCH (08:26)
[2020-11-01] MEDS: LACTULOSE 20 GM/30 ML UDCUP PO SCH (08:26)
[2020-11-01] MEDS: LOSARTAN 50 MG TABLET PO SCH (08:26)
[2020-11-01] MEDS: ASCORBIC ACID 500 MG TAB PO SCH (08:26)
[2020-11-01] MEDS: BALSAM PERU/CASTOR OIL 60 GM TUBE TP SCH ×3 (08:29→21:15)
[2020-11-01 08:51] VITALS: BP 129/71
[2020-11-01] MEDS: ENOXAPARIN SODIUM 30 MG/0.3 ML SQ SCH (10:24)
[2020-11-01] MEDS: MAGNESIUM 2GM PREMIX 50ML 50 ML IV PRN (11:56)
[2020-11-01 12:55] VITALS: BP 130/72
[2020-11-01 15:00] VITALS: BP 131/73
[2020-11-01 19:02] LABS: INR 1.02 (0.85-1.15); PROTHROMBIN TIME 11.1 SEC (9.6-11.6)
[2020-11-01 19:03] LABS: PARTIAL THROMBOPLASTIN TIME 33.5 SEC (26.3-35.5)
[2020-11-01 19:29] LABS: THYROID STIMULATING HORMONE 2.07 uIU/mL (0.36-3.74)
[2020-11-01 19:35] VITALS: BP 97/47
[2020-11-01] MEDS: FLUOXETINE HCL 20 MG CAPSULE PO SCH (21:14)
[2020-11-01] MEDS: ATORVASTATIN 20 MG TABLET PO SCH (21:14)
[2020-11-01] MEDS: ACETAMINOPHEN 650 MG SUPPOSITORY RC PRN (21:34)
[2020-11-01 23:57] VITALS: BP 133/69
[2020-11-02] MEDS: MAGNESIUM 2GM PREMIX 50ML 50 ML IV PRN (01:03)
[2020-11-02 03:50] VITALS: BP 122/68
[2020-11-02 05:59] LABS: BASOPHILS % (AUTO) 0.4 % (0.0-5.0); EOSINOPHILS % (AUTO) 1.9 % (0.0-8.0); HEMATOCRIT 24.9 % (36-48); LYMPHOCYTES % (AUTO) 11.7 % (21.0-51.0); MEAN CORPUSCULAR HEMOGLOBIN 27.5 pg (27.0-33.0); MEAN CORPUSCULAR HGB CONC 30.9 g/dL (32.0-36.0); MEAN CORPUSCULAR VOLUME 88.9 fL (79-99); MONOCYTES % (AUTO) 5.8 % (3.0-13.0); NEUTROPHILS % (AUTO) 72.1 % (40.0-77.0); PLATELET COUNT (AUTO) 172 K/uL (130-400); RED CELL DISTRIBUTION WIDTH 17.7 % (11.0-15.5)
[2020-11-02] MEDS: INSULIN HUMULIN R 100 UNIT/ML 3ML SQ SCH ×4 (06:19→21:42)
[2020-11-02 06:44] LABS: CREATININE 0.8 mg/dL (0.5-1.5); MAGNESIUM 2.6 mg/dL (1.80-2.40); POTASSIUM 3.6 mmol/L (3.5-5.1)
[2020-11-02 08:00] VITALS: BP 101/54
[2020-11-02] MEDS: VANCOMYCIN 1G/250ML KIT 250 ML IV SCH (09:00)
[2020-11-02] MEDS: ENOXAPARIN SODIUM 30 MG/0.3 ML SQ SCH (09:00)
[2020-11-02 09:58] LABS: BASOPHILS % (AUTO) 0.4 % (0.0-5.0); EOSINOPHILS % (AUTO) 2.1 % (0.0-8.0); HEMATOCRIT 24.7 % (36-48); LYMPHOCYTES % (AUTO) 11.5 % (21.0-51.0); MEAN CORPUSCULAR HGB CONC 31.6 g/dL (32.0-36.0); MEAN CORPUSCULAR VOLUME 88.5 fL (79-99); MONOCYTES % (AUTO) 5.6 % (3.0-13.0); PLATELET COUNT (AUTO) 162 K/uL (130-400); RED BLOOD CELL COUNT(AUTO) 2.79 MIL/uL (4.00-5.50); RED CELL DISTRIBUTION WIDTH 17.8 % (11.0-15.5); WHITE BLOOD COUNT (AUTO) 10.1 K/uL (4.8-10.8)
[2020-11-02] MEDS: FAMOTIDINE 20MG VIAL IV SCH ×2 (10:41→21:32)
[2020-11-02] MEDS: CEFTRIAXONE 1G VIAL IV SCH (10:41)
[2020-11-02] MEDS: LACTULOSE 20 GM/30 ML UDCUP PO SCH (10:41)
[2020-11-02] MEDS: ASCORBIC ACID 500 MG TAB PO SCH (10:52)
[2020-11-02] MEDS: FERROUS SULFATE 325 MG TABLET.DR PO SCH (10:52)
[2020-11-02] MEDS: IRON SUCROSE COMPLEX 100 MG in 0.9%NACL 50ML 50 ML IV SCH (10:52)
[2020-11-02] MEDS: LOSARTAN 50 MG TABLET PO SCH (10:52)
[2020-11-02] MEDS: BALSAM PERU/CASTOR OIL 60 GM TUBE TP SCH ×3 (10:52→21:33)
[2020-11-02 12:00] VITALS: BP 99/52
[2020-11-02 19:30] VITALS: BP 100/49
[2020-11-02 19:47] VITALS: BP 107/64
[2020-11-02] MEDS: ATORVASTATIN 20 MG TABLET PO SCH (21:32)
[2020-11-02] MEDS: FLUOXETINE HCL 20 MG CAPSULE PO SCH (21:32)
[2020-11-03] MEDS ORDERED: VANCOMYCIN 1GM+NS 250ML IV SCH (09:00)
== END 2020-11-02 22:49 | DRG 871 ==
LOC: EDH 17:18 → EDHIP 19:40 → 3AH 20:09
PROVIDERS: ADMIT Internal Medicine; ATTEND Internal Medicine
PROC: 30233N1 Transfusion of Nonautologous Red Blood Cells into Peripheral Vein, Percutaneous Approach (ICD-10-PCS; principal; 2020-10-26)
DX: A41.1 Sepsis due to other specified staphylococcus (principal); G93.41 Metabolic encephalopathy; N17.9 Acute kidney failure, unspecified; N39.0 Urinary tract infection, site not specified; E87.0 Hyperosmolality and hypernatremia; E87.1 Hypo-osmolality and hyponatremia; R65.20 Severe sepsis without septic shock; R62.7 Adult failure to thrive; E86.0 Dehydration; E87.6 Hypokalemia; B85.0 Pediculosis due to Pediculus humanus capitis; L89.152 Pressure ulcer of sacral region, stage 2; L89.622 Pressure ulcer of left heel, stage 2; L89.612 Pressure ulcer of right heel, stage 2; B96.89 Other specified bacterial agents as the cause of diseases classified elsewhere; D64.9 Anemia, unspecified; Z51.5 Encounter for palliative care; Z66 Do not resuscitate; E11.9 Type 2 diabetes mellitus without complications; E78.5 Hyperlipidemia, unspecified; E86.1 Hypovolemia; E88.09 Other disorders of plasma-protein metabolism, not elsewhere classified; F03.90 Unspecified dementia, unspecified severity, without behavioral disturbance, psychotic disturbance, mood disturbance, and anxiety; L89.312 Pressure ulcer of right buttock, stage 2; L89.322 Pressure ulcer of left buttock, stage 2; I10 Essential (primary) hypertension; Z20.822 Contact with and (suspected) exposure to COVID-19; R53.81 Other malaise; Z68.24 Body mass index [BMI] 24.0-24.9, adult; Z78.9 Other specified health status; Z88.0 Allergy status to penicillin; Z95.828 Presence of other vascular implants and grafts; Z87.01 Personal history of pneumonia (recurrent); Z86.718 Personal history of other venous thrombosis and embolism; Z86.19 Personal history of other infectious and parasitic diseases; Z83.3 Family history of diabetes mellitus; Z80.3 Family history of malignant neoplasm of breast; Z82.0 Family history of epilepsy and other diseases of the nervous system; Z82.49 Family history of ischemic heart disease and other diseases of the circulatory system
CPT/HCPCS: 36415; 36430; 70450; 71045; 80048; 80053; 80202; 81001; 81241; 82270; 82550; 82607; 82948; 83010; 83036; 83090; 83540; 83550; 83605; 83615; 83690; 83735; 83874; 83880; 83921; 83935; 84132; 84145; 84165; 84443; 84484; 85025; 85240; 85300; 85303; 85306; 85610; 85730; 85732; 86850; 86880; 86900; 86901; 86923; 87040; 87077; 87088; 87186; 87426; 87804; 87880; 92526; 92610; 93005; 93306; 93356; 93971; G0378; J0696; J1450; J1650; J1756; J1815; J1940; J2405; J3370; J3475; J3480; J3490; J7070; P9016; U0003